=== PATIENT | female | born 1960 | race Caucasian/White ===

== ENCOUNTER 2019-05-12 16:22 | Emergency (ER) | payer OTHER, SELFPAY ==
--- NOTE | ~2019-05-12 | XR_ITS ---
EXAMINATION: XR ribs LT 2V w CXR 2V DATE: 05/12/2019 17:20 INDICATION: Left chest pain. Fall. TECHNIQUE: Frontal and lateral views of the chest and 3 views of the left ribs were obtained. COMPARISON: Chest 2 views 05/26/2017 FINDINGS: CHEST TWO VIEWS: The chest demonstrates clear lungs without pneumonia, pleural effusion, or pneumotho rax. The heart size is normal. Surgical clips in the right upper quadrant are likely from cholecystec epi. LEFT RIBS: There is no rib fracture. IMPRESSION: 1. No rib fracture. Reviewed, dictated and finalized at location A. SPHERIC PHYSICIST IMPRESSION: 1. No rib fracture.
--- NOTE | ~2019-05-12 | XR_ITS ---
EXAMINATION: XR elbow LT min 3V DATE: 05/12/2019 17:20 INDICATION: Left elbow pain. Fall. TECHNIQUE: 4 views of left elbow were obtained. COMPARISON: Left elbow radiographs 06/06/2014 FINDINGS: Bone alignment is normal. No fracture. There is mild elbow joint osteoarthritis. There is n o elbow joint effusion. IMPRESSION: 1. Mild elbow joint osteoarthritis. Reviewed, dictated and finalized at location A. FINISHER
--- NOTE | ~2019-05-12 | XR_ITS ---
XR ankle LT min 3V 05/12/2019 17:19 INDICATION: Left ankle pain PROCEDURE: 4 views left ankle COMPARISON: No prior studies for comparison. FINDINGS: Fracture, dislocation or subluxation is not identified. The soft tissues appear within norm al limits. No foreign bodies are identified. There are degenerative calcaneal enthesophytes. IMPRESSION: 1: NO ACUTE BONE OR JOINT ABNORMALITY IDENTIFIED. Reviewed, dictated and finalized at location A. ITAL HOUSEKEEPER
--- NOTE | ~2019-05-12 | XR_ITS ---
XR knee LT 3V 05/12/2019 17:20 Indication: Left knee pain after fall Procedure: 3 views left knee Comparison: No prior studies for comparison. Findings: There is mild-moderate osteoarthritis of the left knee most advanced in the patellofemoral compartment. There are patellar spurs. No significant joint effusion. No fracture or traumatic malali gnment. Impression: 1: No acute bone or joint abnormality. Reviewed, dictated and finalized at location A. UCTION ASSEMBLER Impression: 1: No acute bone or joint abnormality.
[2019-05-12 16:33] VITALS: BP 151/80; PULSE 65; RESP 18; TEMP 37.2; O2SAT 100
--- NOTE | 2019-05-12 17:44 | ED.FALL ---
HPI - Fall General Chief Complaint: Fall Stated Complaint: FALL Time Seen by Provider: 05/12/19 17:00 Source: patient Mode of arrival: wheelchair Limitations: no limitations History of Present Illness HPI Narrative: This is a 58 year old female that presents to the ER for a fall today. Reports she was walking into the doctor office and tripped stepping up onto the sidewalk. Reports falling onto her left side. Reports since she has had pain in her left elbow, left knee, left ankle and left lateral ribs. Reports she was able to walk after the fall. Denies hitting her head, loss of consciousness, prodromal symptoms, shortness of breath, weakness or numbness. Related Data Allergies Allergy/AdvReac Type Severity Reaction Status Date / Time iodine Allergy Intermediate HIVES Verified 05/12/19 16:47 codeine Allergy Unknown Unknown Verified 05/12/19 16:47 furosemide Allergy Unknown Unknown Verified 05/12/19 16:47 hydrochlorothiazide Allergy Unknown Unknown Verified 05/12/19 16:47 Iodinated Contrast Media Allergy Unknown Unknown Verified 05/12/19 16:47 WATER PILL Allergy Severe COULD NOT Uncoded 02/16/18 14:54 MOVE OR WALK Contrast Media Allergy Unknown HIVES FROM Uncoded 02/16/18 14:45 CT DYE Review of Systems Review of Systems: Narrative: CONSTITUTIONAL: Denies fever, chills EYES: Denies visual changes CARDIOVASCULAR: Reports chest pain RESPIRATORY: Denies dyspnea. GASTROINTESTINAL: Denies vomiting MUSCULOSKELETAL: Reports back pain, joint pain, and myalgia. NEUROLOGIC: Denies headache, numbness, or weakness. All systems reviewed & are unremarkable except as noted in HPI and below PMFSH Past Medical History Medical History (Updated 05/12/19 @ 18:06 by Alejandra Payan PA-C) History of anxiety History of depression Family History Family History (Updated 07/18/16 @ 23:56 by DOCTOR UNKNOWN) Sibling Family history of gastrointestinal disorder Mother Family history of chronic obstructive pulmonary disease Family history of malignant neoplasm of breast in first degree relative, Onset Age: 61 Patient's mother is Father Patient's father is Other Family history of malignant neoplasm of esophagus Social History Social History Smoking status: Never smoker Second hand tobacco smoke exposure: No Alcohol intake: never Gender identity (if verbalized by the patient): Female Exam Narrative: Exam Narrative: GENERAL: Well-appearing, well-nourished, and in no acute distress. HEAD: Normocephalic, atraumatic. EYES: PERRLA and EOMI. ENT: Nares clear, no rhinorrhea or epistaxis. Mucous membranes moist. Oropharynx without tonsillar hypertrophy exudate or other lesions. Bilateral TMs pearly verdin non-bulging NECK: Supple. No adenopathy or masses. No midline spinal tenderness CHEST: Clear to auscultation. No respiratory distress. No wheezes rales or rhonchi. Tender to palpation of left lateral lower ribs HEART: Regular rate and rhythm. No murmur heard. Normal peripheral pulses. EXTREMITIES: Normal range of motion. No edema or obvious deformity. Strength equal in bilateral upper and lower extremities (5/5) SKIN: Warm, dry, no rash. NEURO: No focal deficits. Alert and oriented x3. Cranial nerves II through XII grossly intact PSYCH: Normal mood and affect Course Vital Signs Vital signs: Vital Signs Temperature 98.9 F 05/12/19 16:33 Pulse Rate 65 05/12/19 16:33 Respiratory Rate 18 05/12/19 16:33 Blood Pressure 151/80 H 05/12/19 16:33 Pulse Oximetry 100 05/12/19 16:33 Temperature 98.9 F 05/12/19 16:33 Pulse Rate 65 05/12/19 16:33 Respiratory Rate 18 05/12/19 16:33 Blood Pressure 151/80 H 05/12/19 16:33 Pulse Oximetry 100 05/12/19 16:33 MDM - Fall MDM Narrative Medical decision making narrative: Patient presents the emergency department after a ground-level fall today with left elbow, knee, ankle and left sided rib pain. Den
[2019-05-12] MEDS: KETOROLAC (*BKC) 60 MG/2 ML VIAL IM (17:54)
== END 2019-05-12 18:44 | disposition home or self-care (01) ==
PROVIDERS: Emergency Provider Emergency Medicine; PCP Internal Medicine
DX: M25.522 Pain in left elbow (principal); R07.81 Pleurodynia; M25.562 Pain in left knee; M25.572 Pain in left ankle and joints of left foot; M19.072 Primary osteoarthritis, left ankle and foot; W01.0XXA Fall on same level from slipping, tripping and stumbling without subsequent striking against object, initial encounter
CPT/HCPCS: 71045; 71101; 73080; 73562; 73610; 96372; 99284; J1885

== ENCOUNTER 2019-06-16 11:40 | Outpatient (CLI) | payer OTHER, SELFPAY ==
--- NOTE | ~2019-06-16 | MM_ITS ---
EXAMINATION: MM screening [facility] BI w sanchez HISTORY: Screening mammogram TECHNIQUE: Craniocaudal and mediolateral oblique 3-D tomosynthesis images were obtained and synthetic 2-D images were generated. CAD analysis was submitted and interpreted. COMPARISON: Comparison to multiple prior studies sequentially, with oldest reviewed study dated 11/05. BREAST PARENCHYMAL COMPOSITION: There are scattered areas of fibroglandular density. FINDINGS: There is no evidence of suspicious mass, calcification, or architectural distortion to sugg est malignancy in either breast. There has been no suspicious interval change. IMPRESSION: 1. No mammographic evidence of malignancy. 2. Recommend routine screening mammography in one year. BI-RADS Category 1: Negative Reviewed, dictated and finalized at location A. TLE FINAL INSPECTOR
[2019-06-16 12:10] LABS: Hematocrit 40.6 % (37.0-47.0); Hemoglobin 12.9 g/dL (12.0-15.0); Mean Corpuscular HGB Conc 31.8 g/dl (32-36); Mean Corpuscular Hemoglobin 28.2 pg (26-34); Mean Corpuscular Volume 88.6 fl (80-100); Mean Platelet Volume 11.8 fl (7.4-10.4); Platelet Count Result 142 k/mm3 (150-375); Red Blood Count 4.58 M/mm3 (4.2-5.4); Red Cell Distribution Width 13.3 % (11.5-14.5); White Blood Count 3.7 K/mm3 (4.5-10.0)
[2019-06-16 12:42] LABS: Add Urine Microscopic? YES; Appearance Urine Clear (Clear); Bilirubin Urine Negative (Negative); Blood Urine 1+ (Negative); Color Urine Yellow (Yellow); Glucose Urine UA Negative (Negative); Ketones Urine Negative (Negative); Leukocyte Esterase Ur Negative LEU/UL (NEGATIVE); Mucus Urine Rare /lpf; Nitrate Urine Negative (Negative); Protein Urine Negative (Negative); RBC Urine 0-2 /hpf (0-2); Specific Grav Ur 1.018 (1.001-1.035); Squamous Epithelial Cell Urine Few /hpf (Few); Urobilinogen Urine Negative mg/dL (<2.0); WBC Urine 0-3 /hpf (0-3)
[2019-06-16 13:36] LABS: Alanine Aminotransferase 25 U/L (4-35); Alkaline Phosphatase 44 U/L (38-126); Aspartate Amino Transferase 23 U/L (14-36); Bilirubin,Total 0.6 mg/dL (0.2-1.3); Blood Urea Nitrogen 15 mg/dL (7-17); Carbon Dioxide 28 mmol/L (22-30); Chloride 105 mmol/L (98-107); Cholesterol 194 mg/dL (0-200); Estimated Glomerular Filt Rate > 60; Glucose 87 mg/dL (65-105); HDL Direct 49 mg/dL; Potassium 4.2 mmol/L (3.4-5.0); Sodium 142 mmol/L (137-145); Triglycerides 158 mg/dL (<150)
[2019-06-16 13:47] LABS: LDL Cholesterol Direct 116 mg/dL
[2019-06-16 14:42] LABS: Folic Acid 15.3 ng/mL (2.76->20)
== END 2019-06-16 11:41 | disposition home or self-care (01) ==
PROVIDERS: Physician Assistant; PCP Internal Medicine; Visit Provider Internal Medicine
DX: Z12.31 Encounter for screening mammogram for malignant neoplasm of breast (principal); R53.83 Other fatigue; E78.00 Pure hypercholesterolemia, unspecified; I10 Essential (primary) hypertension
CPT/HCPCS: 36415; 77063; 77067; 80053; 80061; 81001; 82607; 82746; 83735; 84443; 85027; 87086; 87088

== ENCOUNTER 2019-09-06 16:43 | Outpatient (CLI) | payer OTHER, SELFPAY ==
--- NOTE | ~2019-09-06 | XR_ITS ---
EXAMINATION: XR chest 2V EXAM DATE: 09/06/2019 17:41 INDICATION: Cough. Hypertension. TECHNIQUE: Frontal and lateral projections of the chest obtained and reviewed. Comparison is made to prior examination from 05/12/2019. FINDINGS: The lungs are clear. There are no pleural effusions. The cardiomediastinal silhouette is within normal limits. There is no pneumothorax suspected. Midthoracic bridging endplate osteophytes . There are cholecystectomy clips. IMPRESSION: No acute cardiopulmonary findings. Reviewed, dictated and finalized at location G.
== END 2019-09-06 16:44 | disposition home or self-care (01) ==
LOC: ANHIMG 16:46
PROVIDERS: PCP Internal Medicine; Visit Provider Internal Medicine
DX: R05 Cough (principal); I10 Essential (primary) hypertension
CPT/HCPCS: 71046

== ENCOUNTER 2020-02-10 09:17 | Outpatient (CLI) | payer OTHER, SELFPAY ==
[2020-02-10 09:35] LABS: Basophils Percent Auto 0.9 % (0.2-1.2); Eosinophils Absolute Auto 0.1 K/mm3 (0-0.3); Eosinophils Percent Auto 3.2 % (0-4.4); Hematocrit 44.2 % (37.0-47.0); Hemoglobin 14.3 g/dL (12.0-15.0); Immature Granulocyte Absolute 0.01 K/mm3 (0.00-0.031); Immature Granulocyte Percent A 0.3 % (0-0.5); Lymphocytes Absolute Auto 1.07 K/mm3 (0.9-3.2); Lymphocytes Percent Auto 31.6 % (18.3-44.2); Mean Corpuscular HGB Conc 32.4 g/dl (32-36); Mean Corpuscular Hemoglobin 28.9 pg (26-34); Mean Corpuscular Volume 89.5 fl (80-100); Mean Platelet Volume 11.5 fl (7.4-10.4); Monocytes Absolute Auto 0.4 K/mm3 (0.1-0.6); Monocytes Percent Auto 12.1 % (2.6-8.5); Neutrophils Absolute Auto 1.8 K/mm3 (1.3-6.7); Neutrophils Percent Auto 51.9 % (45.5-73.1); Platelet Count Result 155 k/mm3 (150-375); Red Blood Count 4.94 M/mm3 (4.2-5.4); White Blood Count 3.4 K/mm3 (4.5-10.0)
[2020-02-10 09:45] LABS: Alanine Aminotransferase 33 U/L (4-35); Albumin Level 4.4 g/dL (3.5-5.1); Alkaline Phosphatase 48 U/L (38-126); Anion Gap 5 mmol/L (8-16); Aspartate Amino Transferase 29 U/L (14-36); Bilirubin,Total 0.6 mg/dL (0.2-1.3); Blood Urea Nitrogen 18 mg/dL (7-17); Calcium 9.6 mg/dL (8.4-10.2); Carbon Dioxide 32 mmol/L (22-30); Chloride 105 mmol/L (98-107); Cholesterol 199 mg/dL (0-200); Estimated Glomerular Filt Rate > 60; Glucose 94 mg/dL (65-105); HDL Direct 52 mg/dL; Magnesium 2.2 mg/dL (1.6-2.3); Potassium 4.3 mmol/L (3.4-5.0); Sodium 142 mmol/L (137-145); Triglycerides 123 mg/dL (<150)
[2020-02-10 09:56] LABS: LDL Cholesterol Direct 123 mg/dL
[2020-02-10 10:51] LABS: Folic Acid 17.7 ng/mL (2.76->20)
== END 2020-02-10 09:18 | disposition home or self-care (01) ==
PROVIDERS: PCP Internal Medicine; Visit Provider Internal Medicine
DX: D72.819 Decreased white blood cell count, unspecified (principal); E78.5 Hyperlipidemia, unspecified; I10 Essential (primary) hypertension; R53.83 Other fatigue
CPT/HCPCS: 36415; 80053; 80061; 82607; 82746; 83735; 84443; 85025

== ENCOUNTER 2020-08-28 08:36 | Outpatient (CLI) | payer OTHER, SELFPAY ==
[2020-08-28 09:22] LABS: Basophils Absolute Auto 0.1 K/mm3 (0.0-0.1); Basophils Percent Auto 1.8 % (0.2-1.2); Eosinophils Absolute Auto 0.1 K/mm3 (0-0.3); Eosinophils Percent Auto 4.3 % (0-4.4); Hematocrit 43.5 % (37.0-47.0); Hemoglobin 13.8 g/dL (12.0-15.0); Lymphocytes Absolute Auto 1.33 K/mm3 (0.9-3.2); Lymphocytes Percent Auto 40.7 % (18.3-44.2); Mean Corpuscular HGB Conc 31.7 g/dl (32-36); Mean Corpuscular Hemoglobin 27.7 pg (26-34); Mean Corpuscular Volume 87.3 fl (80-100); Mean Platelet Volume 11.8 fl (7.4-10.4); Monocytes Absolute Auto 0.3 K/mm3 (0.1-0.6); Monocytes Percent Auto 10.1 % (2.6-8.5); Neutrophils Absolute Auto 1.4 K/mm3 (1.3-6.7); Neutrophils Percent Auto 43.1 % (45.5-73.1); Platelet Count Result 156 k/mm3 (150-375); Red Blood Count 4.98 M/mm3 (4.2-5.4); White Blood Count 3.3 K/mm3 (4.5-10.0)
[2020-08-28 09:32] LABS: Alanine Aminotransferase 24 U/L (4-35); Albumin Level 4.4 g/dL (3.5-5.1); Alkaline Phosphatase 46 U/L (38-126); Anion Gap 4 mmol/L (8-16); Aspartate Amino Transferase 22 U/L (14-36); Bilirubin,Total 0.6 mg/dL (0.2-1.3); Blood Urea Nitrogen 16 mg/dL (7-17); Calcium 9.8 mg/dL (8.4-10.2); Carbon Dioxide 32 mmol/L (22-30); Chloride 107 mmol/L (98-107); Cholesterol 193 mg/dL (0-200); Estimated Glomerular Filt Rate 56; Glucose 90 mg/dL (65-105); HDL Direct 57 mg/dL; Potassium 4.5 mmol/L (3.4-5.0); Sodium 143 mmol/L (137-145); Triglycerides 124 mg/dL (<150)
[2020-08-28 09:44] LABS: LDL Cholesterol Direct 113 mg/dL
[2020-08-28 10:27] LABS: Vitamin D 25 Hydroxy 33.6 ng/mL
[2020-08-28 10:41] LABS: Folic Acid > 20.0 ng/mL (2.76->20)
== END 2020-08-28 08:37 | disposition home or self-care (01) ==
PROVIDERS: PCP Internal Medicine; Visit Provider Internal Medicine
DX: R53.83 Other fatigue (principal); E78.5 Hyperlipidemia, unspecified; E55.9 Vitamin D deficiency, unspecified
CPT/HCPCS: 36415; 80053; 80061; 82306; 82607; 82746; 84443; 85025

== ENCOUNTER 2020-08-29 13:52 | Outpatient (CLI) | payer OTHER, SELFPAY ==
--- NOTE | ~2020-08-29 | MM_ITS ---
EXAMINATION: MM screening [facility] w sanchez HISTORY: Screening TECHNIQUE: Craniocaudal and mediolateral oblique 3-D tomosynthesis images were obtained and synthetic 2-D images were generated. CAD analysis was submitted and interpreted. COMPARISON: Comparison to multiple prior studies sequentially, with oldest reviewed study dated 05/12. BREAST PARENCHYMAL COMPOSITION: There are scattered areas of fibroglandular density. FINDINGS: The right breast is stable without evidence for malignancy. There is a developing mass in t he subareolar location of the left breast. IMPRESSION: 1. Developing subareolar left breast mass. 2. Additional mammographic views and possible breast ultrasound are recommended. BI-RADS Category 0: Incomplete: Needs additional imaging evaluation. Reviewed, dictated and finalized at location A. IMPRESSION: 1. Developing subareolar left breast mass. 2. Additional mammographic views and possible breast ultrasound are recommended . BI-RADS Category 0: Incomplete: Needs additional imaging evaluation.
== END 2020-08-29 13:53 | disposition home or self-care (01) ==
PROVIDERS: PCP Internal Medicine; Visit Provider Obstetrics & Gynecology
DX: Z12.31 Encounter for screening mammogram for malignant neoplasm of breast (principal); R92.8 Other abnormal and inconclusive findings on diagnostic imaging of breast
CPT/HCPCS: 77063; 77067

== ENCOUNTER 2020-10-01 12:17 | Outpatient (CLI) | payer OTHER, SELFPAY ==
--- NOTE | ~2020-10-01 | US_ITS ---
US breast LT limited DATE: 10/01/2020 13:27 Please refer to the 10/01/2020 combined left diagnostic and limited left breast ultrasound report. IMPRESSION: BI-RADS Category 4: Suspicious abnormality; biopsy should be considered Recommendation: Ultrasound-guided biopsy of left breast 6:00 lesion Reviewed, dictated and finalized at Location A. Reviewed, dictated and finalized at location A. IMPRESSION: BI-RADS Category 4: Suspicious abnormality; biopsy should be consid ered Recommendation: Ultrasound-guided biopsy of left breast 6:00 lesion
--- NOTE | ~2020-10-01 | MM_ITS ---
EXAMINATION: MM diagnostic mammo unilat LT HISTORY: Developing subareolar left breast mass reported on 08/29/2020 screening mammogram TECHNIQUE: Additional 3-D tomosynthesis images of the left breast were performed and synthetic 2-D im ages were generated. CAD analysis was submitted and interpreted. High resolution targeted left breast ultrasound was performed. COMPARISON: 08/29/2020, 06/16/2019, 07/21/2017 bilateral digital screening mammogram examinations FINDINGS: MAMMOGRAPHIC FINDINGS: There is a circumscribed 5 x 7 mm opacity in the central lower anterior left breast. There are some benign calcified microhematomas. ULTRASOUND: At 6:00 subareolar area there is an irregular hypoechoic area measuring up to 5 x 7 mm, with some pos terior shadowing. No internal vascularity is noted. IMPRESSION: 1. Suspicious approximately 7 mm solid mass at 6:00 subareolar area 2. Ultrasound-guided biopsy is recommended BI-RADS category 4, suspicious findings. Dr. Alfonso telephoned the report and ultrasound-guided biopsy recommendation on 10/01/[address] Moreno. Reviewed, dictated and finalized at location A. IMPRESSION: 1. Suspicious approximately 7 mm solid mass at 6:00 subareolar area 2. Ultrasound-guided biopsy is recommended BI-RADS category 4, suspicious findings. Dr. Alfonso telephoned the report and ultrasound-guided biopsy recommendation on at [address] Moreno.
== END 2020-10-01 12:18 | disposition home or self-care (01) ==
PROVIDERS: PCP Internal Medicine; Visit Provider Obstetrics & Gynecology
DX: R92.8 Other abnormal and inconclusive findings on diagnostic imaging of breast (principal)
CPT/HCPCS: 76642; 77065

== ENCOUNTER 2020-10-18 10:01 | Outpatient (CLI) | payer OTHER, SELFPAY ==
--- NOTE | ~2020-10-18 | US_ITS ---
Corrected Report Order # Associated See Bolded Text 10/19/2020 [facility] EXAMINATION: US breast biopsy LT w image; MM post biopsy invasive LT DATE: 10/18/2020 11:20 INDICATION: Indeterminate subareolar left breast mass. Ultrasound-guided core biopsy is requested to evaluate for malignancy. TECHNIQUE AND FINDINGS: The risks and potential benefits of the procedure were discussed with the patient including bleeding, infection, and nondiagnostic specimen. A time out was performed. The skin of the left breast was prepared and draped in usual sterile fashion. 1% lidocaine was used for superficial anesthesia. 1% lidocaine with epinephrine was used for deep anesthesia. A vacuum-assisted biopsy gun needle was advanced through to the outer edge of the region of interest from a lateral approach utilizing sonographic guidance. A total of three tissue core samples were obtained through the lesion. A tissue marker clip was then placed at the biopsy site. Hemostasis was achieved. A sterile bandage was applied. The patient tolerated procedure well and there was no evidence of immediate complication. The patient was given verbal instructions to return to the Emergency Department in the event of severe breast pain or rapid breast enlargement. A two view left breast mammogram was obtained to document tissue marker clip placement. IMPRESSION: 1. Successful ultrasound-guided vacuum-assisted biopsy of left breast mass with tissue marker placement. Reviewed, dictated and finalized at location A. MTDD
== END 2020-10-18 10:02 | disposition home or self-care (01) ==
PROVIDERS: PCP Internal Medicine; Visit Provider Obstetrics & Gynecology
DX: R92.2 Inconclusive mammogram (principal); R92.8 Other abnormal and inconclusive findings on diagnostic imaging of breast
CPT/HCPCS: 19083; 88305; 88342; A4648

== ENCOUNTER 2020-11-01 11:38 | Outpatient (CLI) | payer OTHER, SELFPAY ==
--- NOTE | ~2020-11-01 | XR_ITS ---
EXAMINATION: XR chest 2V DATE: 11/01/2020 12:09 INDICATION: Cough and congestion TECHNIQUE: PA and lateral views of the chest are obtained. COMPARISON: 08/17/2019 FINDINGS: The lungs are free of acute opacities. There is no pleural effusion or pneumothorax. The ca rdiomediastinal silhouette is normal. There are bridging osteophytes at multiple levels in the spine, consistent with diffuse idiopathic skeletal hyperostosis (DISH). Surgical clips in the right upper q uadrant are likely from prior cholecystectomy. IMPRESSION: 1. No acute cardiopulmonary abnormality. Reviewed, dictated and finalized at location B.
== END 2020-11-01 11:39 | disposition home or self-care (01) ==
LOC: CHSIMG 11:41
PROVIDERS: PCP Internal Medicine; Visit Provider Physician Assistant
DX: R05 Cough (principal)
CPT/HCPCS: 71046

== ENCOUNTER 2020-12-13 02:26 | Day surgery (SDC) | payer OTHER, SELFPAY ==
--- NOTE | 2020-12-11 12:38 | PM.SD2 ---
Same Day Admit/Disch: HPI History of Present Illness Chief complaint: Atypical intraductal hyperplasia left breast Narrative: Pollo Marin is a 59 year old female who on screening mammogram last August showed a developing subareolar left breast mass. Additional imaging was recommended. The right breast was negative. Left breast diagnostic mammogram and ultrasound was done back in September. This showed a 5 x 7 mm opacity in the central lower but anterior left breast. Ultrasound showed a suspicious solid mass at approximately 6:00 a.m. in the subareolar area. The patient had a follow-up ultrasound guided core biopsy on October 18, 2020 which showed atypical intraductal papillary proliferation. Patient has a strong family history of cancer and her mother had breast cancer at an early age. Her mother also of breast cancer. Patient has a significant previous history also of a bilateral breast reduction about 15 years ago. She has not had an abnormal mammogram in the past. She is taken to surgery now for wire localization left breast excisional biopsy of the atypical intraductal proliferation. [facility] Past Medical History Medical History (Updated 12/13/20 @ 11:50 by Zan Ann MD) History of anxiety History of depression Hyperlipidemia Hypertension PONV (postoperative nausea and vomiting) Surgical History Surgical History (Updated 12/12/20 @ 12:34 by Levar Longoria DO) History of bilateral breast reduction surgery History of cardiac cath History of hysterectomy History of tubal ligation Hx of carpal tunnel repair S/P cholecystectomy Family History Family History Sibling Family history of gastrointestinal disorder Lung cancer Mother , age 61 Family history of chronic obstructive pulmonary disease Family history of malignant neoplasm of breast in first degree relative, Onset Age: 61 Father , age 57 Lymphoma Son , age 30 Esophageal cancer Other Family history of malignant neoplasm of esophagus Social History Social History Smoking status: Never smoker Second hand tobacco smoke exposure: Yes Alcohol intake: never Substance use: never Living arrangements: with family 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 Gender identity (if verbalized by the patient): Female Spiritual care concerns: No Same Day Admit/Disch: Med Pre-admit Medications Home Medications Medication Instructions Recorded Confirmed Type acetaminophen 500 mg tablet 500 mg PO Q6H PRN 06/15/19 12/13/20 History aspirin 81 mg tablet,delayed 81 mg PO DAILY 06/15/19 12/13/20 History release cholecalciferol (vitamin D3) 50 2,000 unit PO DAILY 06/15/19 12/13/20 History mcg (2,000 unit) capsule lisinopril 20 mg tablet 20 mg PO DAILY #90 tablet 07/27/20 12/13/20 Rx alprazolam 1 mg PO HS 12/11/20 12/13/20 History simvastatin 40 mg PO HS 12/11/20 12/13/20 History ibuprofen 600 mg PO Q6H PRN #14 tablet 12/13/20 Rx oxycodone-acetaminophen 0.5 - 1 tablet PO Q6H PRN #7 tablet 12/13/20 Rx Exam Const: General: comfortable, no acute distress, alert and awake HENMT: Head: normocephalic and atraumatic Mouth: Yes Normal oral and palatal mucosa present Eyes: Conjunctivae: conjunctivae normal Pupils: Equal, round and reactive pupils present EOM: EOMs intact bilaterally Neck: Neck: normal visual inspection, no lymphadenopathy and nontender Chest: Breast/axilla inspection: normal inspection of the axillae and abnormal inspection of the breast ( Typical keyhole scars from bilateral reduction mammoplasty) Breast/axilla palpation: normal palpation of the breasts and normal palpation of the axillae Resp: Effort & Inspection: normal respiratory effort Auscultation: clear to auscultation bilaterally Cardio: Rate: regular rate Rhythm: regular rhythm Heart sounds: no gal
[2020-12-11 14:09] VITALS: BMI 36.8
--- NOTE | 2020-12-12 12:34 | WPDANESEPPF ---
Anes - Initial Pre Proc Eval Procedure: Operation Date: 12/13/20 10:30 Proposed Procedures p Left Breast Biopsy With Ultrasound and/or Mammogram Guided Needle Localization - Zan Ann MD Date/Time: 12/12/20 12:34 Surgeon: Zan Ann MD Pre Op Diagnosis: Atypical intraductal hyperplasia left breast Patient Data Age: 59 Gender: F Height: 1.6 m Weight: 94.5 kg Allergies Allergy/AdvReac Type Severity Reaction Status Date / Time furosemide Allergy Severe couldnt Verified 12/13/20 08:51 move or walk hydrochlorothiazide Allergy Severe couldnt Verified 12/13/20 08:51 move or walk Iodinated Contrast Media Allergy Severe Hives Verified 12/13/20 08:51 iodine Allergy Intermediate HIVES Verified 12/13/20 08:51 procaine [From Novocain] Allergy Intermediate Vomiting, Verified 12/13/20 08:51 dizziness codeine Allergy Mild upset Verified 12/13/20 08:51 stomach Home Medications Medication Instructions Recorded Confirmed Type acetaminophen 500 mg tablet 500 mg PO Q6H PRN 06/15/19 12/13/20 History aspirin 81 mg tablet,delayed 81 mg PO DAILY 06/15/19 12/13/20 History release cholecalciferol (vitamin D3) 50 2,000 unit PO DAILY 06/15/19 12/13/20 History mcg (2,000 unit) capsule lisinopril 20 mg tablet 20 mg PO DAILY #90 tablet 07/27/20 12/13/20 Rx alprazolam 1 mg PO HS 12/11/20 12/13/20 History simvastatin 40 mg PO HS 12/11/20 12/13/20 History Patient hx anesthesia problems: none Family hx anesthesia problems: none PMFSH Past Medical History Medical History (Updated 12/12/20 @ 12:34 by Levar Longoria DO) History of anxiety History of depression Hyperlipidemia Hypertension PONV (postoperative nausea and vomiting) Surgical History Surgical History (Updated 12/12/20 @ 12:34 by Levar Longoria DO) History of bilateral breast reduction surgery History of cardiac cath History of hysterectomy History of tubal ligation Hx of carpal tunnel repair S/P cholecystectomy Family History Family History Sibling Family history of gastrointestinal disorder Lung cancer Mother , age 61 Family history of chronic obstructive pulmonary disease Family history of malignant neoplasm of breast in first degree relative, Onset Age: 61 Father , age 57 Lymphoma Son , age 30 Esophageal cancer Other Family history of malignant neoplasm of esophagus Social History Social History Smoking status: Never smoker Second hand tobacco smoke exposure: Yes Alcohol intake: never Substance use: never Living arrangements: with family 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 Gender identity (if verbalized by the patient): Female Spiritual care concerns: No Anes - Eval Final PreProcedure Day of Procedure 12/12/20 12:34 Patient weight: obese Heart: regular rate and rhythm Lungs: clear to auscultation and normal air movement Airway: Mallampati scale class II Neurological: alert and oriented Last oral intake: >/= 8 hours ASA classification: III Emergent: no Anesthetic plan: proceed Anesthesia type and monitoring: general GIVS and standard monitoring Informed Consent: The patient's anesthetic plan and its attendant risks and benefits were discussed with the patient/family/POA. Questions were solicited and answers provided to the satisfaction of the patient/family/POA.
--- NOTE | ~2020-12-13 | MM_ITS ---
EXAMINATION: MM needle loc LT, MM surgical specimen LT MAMMOGRAPHY SPECIMEN DATE: 12/13/2020 11:21 CDT INDICATION: Atypical intraductal papillary proliferation seen on prior biopsy.. TECHNIQUE: The procedure for a mammography-guided needle localization was discussed with the patient' s. Risks and benefits were detailed, including risks of bleeding, infection, pain, and nondiagnostic specimen. The patient verbalized understanding and agreed to proceed. The time out was performed to verify the patient's name, date of , and site of procedure. The p atient was placed in the left breast compression, and the skin overlying the left breast was prepped in usual fashion. Utilizing mammography guidance, a needle was advanced into the left breast. Two c onfirmatory films were obtained. The patient tolerated procedure without immediate complication. A specimen radiograph was performed. FINDINGS: Two view confirmatory films of the left breast demonstrate a the wire adjacent to the lesio n of interest containing tissue marker. The mass and tissue marker are contained within the surgical specimen.] IMPRESSION: 1. Successful mammography-guided left breast needle localization. Reviewed, dictated and finalized at location [facility]. IMPRESSION: 1. Successful mammography-guided left breast needle localization.
[2020-12-13] MEDS: LACTATED RINGERS 1,000 ML 30 ML IV CONT ×2 (08:55→11:33)
[2020-12-13 09:21] VITALS: BP 144/86; PULSE 68; RESP 16; TEMP 36.9; O2SAT 100
--- NOTE | 2020-12-13 10:16 | WPDHPUPDATE1 ---
History and Physical Update Update Date/Time: 12/13/20 10:16 History and Physical has been reviewed, including an updated exam of the patient. There are NO changes in the patient's condition. Risks, benefits, and alternatives have been discussed and questions answered. Patient agrees to proceed with procedure.
[2020-12-13] MEDS: ceFAZolin 2 GM/D5W 50 ML 2 GM/50 ML BAG IVPB (10:35)
--- NOTE | 2020-12-13 11:17 | SUR.OPER ---
LEFT EXCISIONAL BREAST BIOPSY COLLECTED AT 1108. SENT TO MAMMS PER YRIS PCT AT 1110. MAMMS RECEIVED SPECIMEN AT 1115 AND STATED MARKER WAS IN THE SPECIMEN. DR. BENITEZ NOTIFIED.
[2020-12-13 11:33] VITALS: BP 121/68; PULSE 69; RESP 16; O2SAT 95
[2020-12-13 11:45] VITALS: BP 121/68; PULSE 63; RESP 16; O2SAT 96
--- NOTE | 2020-12-13 11:52 | W.PM.PROC2 ---
Procedure Note - Detailed Date of Procedure 12/13/20 Pre-op Diagnosis Atypical intraductal hyperplasia left breast Post-op Diagnosis same Procedure Performed Needle localization left breast excisional biopsy Surgeon Zan Ann MD Geophysical E Logger Victor Hugo ANNE, Maggy ANNE Anesthesia MAC and local Indications Patient an abnormality of the left breast by imaging. Ultrasound-guided needle biopsy showed atypical intraductal hyperplasia. She is taken to surgery now for wire localization excisional biopsy to rule out associated breast neoplasm. Findings Specimen mammogram did confirm the presence of the lesion Description of Procedure Patient was checked in the preoperative holding area. She had already had the wire localization procedure. I reviewed her imaging. She was taken to surgery and IV sedation was administered. The left breast was prepped and draped taking care not to disturb the localizing wire. The proposed incision was at the circumareolar border where she had had previous incision from her reduction mammoplasty. Local was infiltrated in this area. Incision was then made. Cautery was used for hemostasis. Dissection was carried down staying away from the area of the lesion until I encountered the localizing wire. I then carefully pulled the wire through the skin and out the wound. From here I was then able to dissect under the nipple-areolar complex around the wire. I stayed just superficial to the wire advancing farther along the wire towards the more medial aspect of the breast. As I came to the into the wire, I then dissected around it and posterior. I took more breast tissue posteriorly as this was the area of the lesion and the localizing clip. I excised the breast tissue with a generous excision. Cautery was used for hemostasis. The wire was left in the specimen. The specimen and wire was sent to mammography where specimen mammogram was performed. The lesion was in the specimen. We then made the wound hemostatic with the cautery. It was closed in layers using 3-0 Monocryl interrupted suture. Subcuticular interrupted 3-0 Monocryl skin stitches were placed followed by a running 4-0 Monocryl skin suture. The wound was dressed with Exofin surgical adhesive. The patient was awakened and taken to outpatient surgery in good condition. Sponge and needle counts were correct x2. Estimated Blood Loss -10.0 Drains No Packing No Pathology yes (Left breast tissue) Complications None Condition stable Disposition same day
[2020-12-13 12:00] VITALS: BP 136/67; PULSE 64; RESP 16; O2SAT 98
[2020-12-13 12:30] VITALS: BP 137/68; PULSE 68; RESP 16
== END 2020-12-13 12:50 | disposition home or self-care (01) ==
PROVIDERS: PCP Internal Medicine; Visit Provider Surgery
PROC: (CPT 19125; principal; 2020-12-13 10:30)
DX: N60.92 Unspecified benign mammary dysplasia of left breast (principal); N60.82 Other benign mammary dysplasias of left breast; I10 Essential (primary) hypertension; E78.5 Hyperlipidemia, unspecified; Z80.0 Family history of malignant neoplasm of digestive organs; Z79.82 Long term (current) use of aspirin
CPT/HCPCS: 19125; 19281; 76098; 88307; 88342; A9270; C1769; J0690; J1100; J1200; J2250; J2405; J2704; J3010; J7120

== ENCOUNTER 2021-05-14 01:02 | Day surgery (SDC) | payer OTHER, SELFPAY ==
[2021-05-06 11:40] VITALS: BMI 33.2
[2021-05-14 07:03] VITALS: BP 142/62; PULSE 68; RESP 18; TEMP 36.6; O2SAT 100
[2021-05-14] MEDS: LACTATED RINGERS 1,000 ML 150 ML IV CONT (07:17)
--- NOTE | 2021-05-14 07:27 | WPDANESEPPF ---
Anes - Initial Pre Proc Eval Procedure: Operation Date: 05/14/21 08:00 Proposed Procedures p Esophagogastroduodenoscopy - Dennis Phillips MD Date/Time: 05/14/21 07:27 Surgeon: Dennis Phillips MD Pre Op Diagnosis: chest pain, GERD, epigastric pain Patient Data Age: 60 Gender: F Height: 1.61 m Weight: 90.2 kg Last Vital Signs Temp 36.6 C 05/14/21 07:03 Pulse 68 05/14/21 07:03 Resp 18 05/14/21 07:03 BP 142/62 H 05/14/21 07:03 Pulse Ox 100 05/14/21 07:03 Allergies Allergy/AdvReac Type Severity Reaction Status Date / Time furosemide Allergy Severe couldnt Verified 05/14/21 07:01 move or walk hydrochlorothiazide Allergy Severe couldnt Verified 05/14/21 07:01 move or walk Iodinated Contrast Media Allergy Severe Hives Verified 05/14/21 07:01 iodine Allergy Intermediate HIVES Verified 05/14/21 07:01 codeine AdvReac Mild upset Verified 05/14/21 07:01 stomach Home Medications Medication Instructions Recorded Confirmed Type acetaminophen 500 mg tablet 500 mg PO Q6H PRN 06/15/19 05/06/21 History aspirin 81 mg tablet,delayed 81 mg PO DAILY 06/15/19 05/06/21 History release cholecalciferol (vitamin D3) 50 2,000 unit PO DAILY 06/15/19 05/06/21 History mcg (2,000 unit) capsule lisinopril 20 mg tablet 20 mg PO DAILY #90 tablet 04/02/21 05/06/21 Rx alprazolam 1 mg tablet 1 mg PO HS #30 tablet 05/02/21 05/06/21 Rx famotidine 20 mg PO DAILY 05/06/21 05/06/21 History simvastatin 40 mg PO HS 05/06/21 05/06/21 History Patient hx anesthesia problems: post op nausea/vomiting Family hx anesthesia problems: none Results Review: All pre-operative results and documents have been reviewed as part of the pre-operative evaluation. [facility] Past Medical History Medical History History of anxiety History of depression Hyperlipidemia Hypertension PONV (postoperative nausea and vomiting) Surgical History Surgical History History of bilateral breast reduction surgery History of cardiac cath History of hysterectomy History of tubal ligation Hx of carpal tunnel repair S/P cholecystectomy Family History Family History Sibling Family history of gastrointestinal disorder Lung cancer Mother , age 61 Family history of chronic obstructive pulmonary disease Family history of malignant neoplasm of breast in first degree relative, Onset Age: 61 Father , age 57 Lymphoma Son , age 30 Esophageal cancer Other Family history of malignant neoplasm of esophagus Social History Social History Smoking status: Never smoker Second hand tobacco smoke exposure: Yes Alcohol intake: never Substance use: never Substance use type: does not use Living arrangements: with family 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 Informed Consent: The patient's anesthetic plan and its attendant risks and benefits were discussed with the patient/family/POA. Questions were solicited and answers provided to the satisfaction of the patient/family/POA.
--- NOTE | 2021-05-14 07:55 | WPDGICN ---
Assessment and Plan Assessment and plan (1) Epigastric pain: Code(s): R10.13 - Epigastric pain Status: Acute Assessment and Plan: Patient complains of epigastric pain. Not completely resolve with Pepcid. Plan is for EGD to assess more thoroughly. Suspect this is consistent with dyspepsia. She is somewhat concerned because of family history of esophageal cancer in her son. Plan is for an EGD with further recommendations subsequently. GI Consult Note Consult date/time: 05/14/21 07:55 HPI: Shawnrigo Marin is a 60 year old female Complains of epigastric pain bloating pressure over the last 3 weeks. She was started on Pepcid with some modest improvement of symptoms. She has feels much improved now she is referred for an EGD because of her epigastric pain. Patient denies any dysphagia. She has had no bleeding or weight loss. Family history is significant that her son had esophageal cancer at age 36. Patient last had an EGD 10 years ago. Patient does report a colon polyp removed by Dr Silverman in 2019. Follow-up colonoscopy has been recommended at 5 year intervals. Review of Systems Review of Systems: All systems reviewed & are unremarkable except as noted in HPI and below PMFSH Past Medical History Medical History History of anxiety History of depression Hyperlipidemia Hypertension PONV (postoperative nausea and vomiting) Surgical History Surgical History History of bilateral breast reduction surgery History of cardiac cath History of hysterectomy History of tubal ligation Hx of carpal tunnel repair S/P cholecystectomy Family History Family History Sibling Family history of gastrointestinal disorder Lung cancer Mother , age 61 Family history of chronic obstructive pulmonary disease Family history of malignant neoplasm of breast in first degree relative, Onset Age: 61 Father , age 57 Lymphoma Son , age 30 Esophageal cancer Other Family history of malignant neoplasm of esophagus Social History Social History Smoking status: Never smoker Second hand tobacco smoke exposure: Yes Alcohol intake: never Substance use: never Substance use type: does not use Living arrangements: with family 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 Gender identity (if verbalized by the patient): Female Spiritual care concerns: No Meds Home Medications and Allergies Home Medications Medication Instructions Recorded Confirmed Type acetaminophen 500 mg tablet 500 mg PO Q6H PRN 06/15/19 05/06/21 History aspirin 81 mg tablet,delayed 81 mg PO DAILY 06/15/19 05/06/21 History release cholecalciferol (vitamin D3) 50 2,000 unit PO DAILY 06/15/19 05/06/21 History mcg (2,000 unit) capsule lisinopril 20 mg tablet 20 mg PO DAILY #90 tablet 04/02/21 05/06/21 Rx alprazolam 1 mg tablet 1 mg PO HS #30 tablet 05/02/21 05/06/21 Rx famotidine 20 mg PO DAILY 05/06/21 05/06/21 History simvastatin 40 mg PO HS 05/06/21 05/06/21 History Allergies Allergy/AdvReac Type Severity Reaction Status Date / Time furosemide Allergy Severe couldnt Verified 05/14/21 07:01 move or walk hydrochlorothiazide Allergy Severe couldnt Verified 05/14/21 07:01 move or walk Iodinated Contrast Media Allergy Severe Hives Verified 05/14/21 07:01 iodine Allergy Intermediate HIVES Verified 05/14/21 07:01 codeine AdvReac Mild upset Verified 05/14/21 07:01 stomach Vital Signs Vital Signs - 24 hr 05/14/21 07:03 Temperature 97.8 F Pulse Rate 68 Respiratory Rate 18 Blood Pressure 142/62 H Pulse Oximetry 100 Exam Narrative: Physical exam reveals patient be alert. Vital signs stable. HEENT exam is unr
[2021-05-14 08:10] VITALS: BP 107/49; PULSE 58; RESP 20; O2SAT 100
[2021-05-14 08:20] VITALS: BP 108/54; PULSE 61; RESP 15; O2SAT 100
[2021-05-14 08:30] VITALS: BP 121/60; PULSE 60; RESP 16; O2SAT 100
== END 2021-05-14 08:50 | disposition home or self-care (01) ==
PROVIDERS: PCP Internal Medicine; Visit Provider Internal Medicine Gastroenterology
PROC: 0DJ08ZZ Inspection of Upper Intestinal Tract, Via Natural or Artificial Opening Endoscopic (ICD-10-PCS; CPT 43235; principal; 2021-05-14 08:00)
DX: K21.9 Gastro-esophageal reflux disease without esophagitis (principal); I10 Essential (primary) hypertension; E78.5 Hyperlipidemia, unspecified; F41.8 Other specified anxiety disorders; Z79.82 Long term (current) use of aspirin; E66.9 Obesity, unspecified; Z68.34 Body mass index [BMI] 34.0-34.9, adult
CPT/HCPCS: 43239; 87081; J2704; J7120

== ENCOUNTER 2021-06-11 11:38 | Outpatient (CLI) | payer OTHER, SELFPAY ==
[2021-06-11 12:23] LABS: Add Urine Microscopic? YES; Appearance Urine Clear (Clear); Bilirubin Urine Negative (Negative); Blood Urine 1+ (Negative); Color Urine Yellow (Yellow); Glucose Urine UA Negative (Negative); Ketones Urine Negative (Negative); Leukocyte Esterase Ur Negative LEU/UL (Negative); Mucus Urine Rare /lpf; Nitrate Urine Negative (Negative); Protein Urine Negative (Negative); RBC Urine 0-2 /hpf (0-2); Specific Grav Ur 1.015 (1.001-1.035); Squamous Epithelial Cell Urine Rare /hpf (Few); Urobilinogen Urine Negative mg/dL (<2.0); WBC Urine 0-3 /hpf
== END 2021-06-11 11:39 | disposition home or self-care (01) ==
LOC: ANHLAB 11:41
PROVIDERS: PCP Internal Medicine; Visit Provider Internal Medicine
DX: R10.9 Unspecified abdominal pain (principal)
CPT/HCPCS: 81001

== ENCOUNTER 2021-06-11 17:48 | Emergency (ER) | payer OTHER, SELFPAY ==
[2021-06-11] VITALS (12 sets, daily range): BP systolic 146–158; BP diastolic 68–82; PULSE 62–72; RESP 12–19; TEMP 37.3; O2SAT 93–100
--- NOTE | ~2021-06-11 | CT_ITS ---
EXAMINATION: CT abdomen pelvis wo con DATE: 06/11/2021 20:47 INDICATION: Left flank pain, urinary pressure and burning. Hematuria. TECHNIQUE: Computed tomography (CT) of the abdomen and pelvis was performed without intravenous contr ast. Automated exposure control and iterative reconstruction technique were employed. Exam dose: 105 6.42 mGy-cm total exam DLP. COMPARISON: None. FINDINGS: 2.3 x 4.3 mm and 3 mm middle lobe nodules normal heart size. Coronary artery calcification. No pericardial or pleural effusion. The lungs are clear of infiltrate or consolidation. Small sliding hiatal hernia. Status post cholecystectomy. Chronic benign 8 x 14 mm prominent calcification at the posterior aspect of the right hepatic lobe. T here is an adjacent 13 mm hepatic cyst. The liver, spleen, pancreas, and adrenal glands are otherwise unremarkable on this limited noncontrast examination. No right renal mass lesion. There is prominent scarring and some volume loss of the left kidney likely due to chronic pyelonephri tis. No urinary tract calculus or hydroureteronephrosis. The urinary bladder is unremarkable. Status post hysterectomy. Normal caliber of the abdominal aorta. No intraperitoneal or retroperitoneal or pelvic mass lesion or adenopathy or ascites. Minimal colonic diverticulosis; no CT evidence of diverticulitis. No bowel obstruction, bowel wall th ickening, pneumatosis or intraperitoneal free air. Diffuse idiopathic skeletal hyperostosis of the thoracic spine. Severe degenerative disc disease at L5-S1 associated mild retrolisthesis. IMPRESSION: Scarring and volume loss of left kidney likely due to chronic pyelonephritis No urinary tract calculus or hydroureteronephrosis Benign 13 mm hepatic cyst and adjacent benign posterior right hepatic calcification Status post cholecystectomy Status post hysterectomy Reviewed, dictated and finalized at [facility]. Reviewed, dictated and finalized at location [facility]. 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
[2021-06-11 20:38] LABS: Basophils Absolute Auto 0.1 K/mm3 (0.0-0.1); Eosinophils Absolute Auto 0.1 K/mm3 (0-0.3); Eosinophils Percent Auto 1.8 % (0-4.4); Hematocrit 44.3 % (37.0-47.0); Hemoglobin 14.2 g/dL (12.0-15.0); Immature Granulocyte Absolute 0.01 K/mm3 (0.00-0.031); Immature Granulocyte Percent A 0.2 % (0-0.5); Lymphocytes Absolute Auto 1.82 K/mm3 (0.9-3.2); Lymphocytes Percent Auto 36.2 % (18.3-44.2); Mean Corpuscular HGB Conc 32.1 g/dl (32-36); Mean Corpuscular Hemoglobin 28.7 pg (26-34); Mean Corpuscular Volume 89.5 fl (80-100); Mean Platelet Volume 12.3 fl (7.4-10.4); Monocytes Absolute Auto 0.4 K/mm3 (0.1-0.6); Monocytes Percent Auto 8.2 % (2.6-8.5); Neutrophils Absolute Auto 2.7 K/mm3 (1.3-6.7); Neutrophils Percent Auto 52.6 % (45.5-73.1); Platelet Count Result 158 k/mm3 (150-375); Red Blood Count 4.95 M/mm3 (4.2-5.4); Red Cell Distribution Width 13.1 % (11.5-14.5)
[2021-06-11 20:52] LABS: Alanine Aminotransferase 24 U/L (4-35); Albumin Level 4.3 g/dL (3.5-5.1); Alkaline Phosphatase 41 U/L (38-126); Anion Gap 5 mmol/L (8-16); Aspartate Amino Transferase 31 U/L (14-36); Bilirubin,Total 0.5 mg/dL (0.2-1.3); Blood Urea Nitrogen 17 mg/dL (7-17); Carbon Dioxide 29 mmol/L (22-30); Chloride 107 mmol/L (98-107); Estimated CRCL calculation 60 ml/min; Estimated Glomerular Filt Rate > 60; Glucose 85 mg/dL (65-110); Potassium 4.2 mmol/L (3.4-5.0); Sodium 141 mmol/L (137-145)
--- NOTE | 2021-06-11 20:55 | ED.FEMALEGU ---
HPI - Female Genitourinary General Chief complaint: Urogenital-Female Stated complaint: left flank pain Time Seen by Provider: 06/11/21 20:24 Source: patient History of Present Illness HPI Narrative: Patient presents with back pain. She reports she has had back pain for the past several days. Pain is getting progressively worse is predominant on the left side and radiates to her left flank. Sharp, constant, worse with bending over. Saw her primary care doctor and had urine performed and no blood referred her to the ER for further evaluation. Reports she took an antibiotic home but did not alleviate her symptoms. She denies any trauma she denies any IV drug use denies any recent spinal instrumentation. Related Data Home Medications Medication Instructions Recorded Confirmed acetaminophen 500 mg tablet 500 mg PO Q6H PRN 06/15/19 05/06/21 aspirin 81 mg tablet,delayed 81 mg PO DAILY 06/15/19 05/06/21 release cholecalciferol (vitamin D3) 50 2,000 unit PO DAILY 06/15/19 05/06/21 mcg (2,000 unit) capsule famotidine 20 mg PO DAILY 05/06/21 05/06/21 simvastatin 40 mg PO HS 05/06/21 05/06/21 Allergies Allergy/AdvReac Type Severity Reaction Status Date / Time furosemide Allergy Severe couldnt Verified 05/14/21 07:01 move or walk hydrochlorothiazide Allergy Severe couldnt Verified 05/14/21 07:01 move or walk Iodinated Contrast Media Allergy Severe Hives Verified 05/14/21 07:01 iodine Allergy Intermediate HIVES Verified 05/14/21 07:01 codeine AdvReac Mild upset Verified 05/14/21 07:01 stomach Review of Systems Review of Systems: CONSTITUTIONAL: Denies fever, chills, or sweats. EYES: Denies visual changes, redness, or discharge. ENT: Denies rhinorrhea, congestion, sore throat, or otalgia. CARDIOVASCULAR: Denies chest pain, palpitations, or edema. RESPIRATORY: Denies cough or dyspnea. GASTROINTESTINAL: Denies abdominal pain, nausea, vomiting, or diarrhea. GENITOURINARY: Denies dysuria or hematuria. SKIN: Denies rash or itching. MUSCULOSKELETAL: Denies joint pain, or myalgia. NEUROLOGIC: Denies headache, numbness, dizziness, or weakness. PSYCHIATRIC: Denies anxiety or depression. All systems reviewed & are unremarkable except as noted in HPI and below PMFSH Past Medical History Medical History History of anxiety History of depression Hyperlipidemia Hypertension PONV (postoperative nausea and vomiting) Surgical History Surgical History History of bilateral breast reduction surgery History of cardiac cath History of hysterectomy History of tubal ligation Hx of carpal tunnel repair S/P cholecystectomy Family History Family History Sibling Family history of gastrointestinal disorder Lung cancer Mother , age 61 Family history of chronic obstructive pulmonary disease Family history of malignant neoplasm of breast in first degree relative, Onset Age: 61 Father , age 57 Lymphoma Son , age 30 Esophageal cancer Other Family history of malignant neoplasm of esophagus Social History Social History Smoking status: Never smoker Second hand tobacco smoke exposure: Yes Alcohol intake: never Substance use: never Substance use type: does not use 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 HEAD: Normocephalic, atraumatic. EYES: PERRLA and EOMI. ENT: Nares clear, no rhinorrhea or epistaxis. Mucous membranes moist. NECK: Supple. No masses. No JVD CHEST: Clear to auscultation. No respiratory distress. No wheezes rales or rhonchi HEART: Regular
[2021-06-11 21:06] LABS: Add Urine Microscopic? YES; Appearance Urine Clear (Clear); Bilirubin Urine Negative (Negative); Blood Urine 1+ (Negative); Color Urine Yellow (Yellow); Glucose Urine UA Negative (Negative); Ketones Urine Negative (Negative); Leukocyte Esterase Ur 1+ LEU/UL (Negative); Mucus Urine Rare /lpf; Nitrate Urine Negative (Negative); Protein Urine Negative (Negative); Specific Grav Ur 1.019 (1.001-1.035); Urobilinogen Urine Negative mg/dL (<2.0)
[2021-06-11] MEDS: KETOROLAC 15 MG/ML VIAL (*BKC) IV PUSH (22:20)
== END 2021-06-11 22:30 | disposition home or self-care (01) ==
PROVIDERS: Emergency Medicine; Emergency Provider Emergency Medicine; PCP Internal Medicine
DX: N39.0 Urinary tract infection, site not specified (principal); Z79.82 Long term (current) use of aspirin; E78.5 Hyperlipidemia, unspecified; I10 Essential (primary) hypertension; F41.9 Anxiety disorder, unspecified; F32.A Depression, unspecified
CPT/HCPCS: 36415; 74176; 80053; 81001; 85025; 87086; 96374; 99284; J1885

== ENCOUNTER 2021-08-19 10:28 | Outpatient (CLI) | payer OTHER, SELFPAY ==
[2021-08-19 10:43] LABS: Basophils Percent Auto 0.6 % (0.2-1.2); Eosinophils Absolute Auto 0.1 K/mm3 (0-0.3); Eosinophils Percent Auto 1.8 % (0-4.4); Hematocrit 41.9 % (37.0-47.0); Hemoglobin 13.7 g/dL (12.0-15.0); Immature Granulocyte Absolute 0.02 K/mm3 (0.00-0.031); Immature Granulocyte Percent A 0.3 % (0-0.5); Lymphocytes Absolute Auto 1.36 K/mm3 (0.9-3.2); Lymphocytes Percent Auto 19.3 % (18.3-44.2); Mean Corpuscular HGB Conc 32.7 g/dl (32-36); Mean Corpuscular Hemoglobin 28.7 pg (26-34); Mean Corpuscular Volume 87.7 fl (80-100); Mean Platelet Volume 11.5 fl (7.4-10.4); Monocytes Absolute Auto 0.5 K/mm3 (0.1-0.6); Monocytes Percent Auto 7.4 % (2.6-8.5); Neutrophils Percent Auto 70.6 % (45.5-73.1); Platelet Count Result 146 k/mm3 (150-375); Red Blood Count 4.78 M/mm3 (4.2-5.4); Red Cell Distribution Width 13.1 % (11.5-14.5)
[2021-08-19 11:03] LABS: Alanine Aminotransferase 22 U/L (6-35); Albumin Level 4.1 g/dL (3.5-5.1); Alkaline Phosphatase 45 U/L (38-126); Anion Gap 5 mmol/L (8-16); Aspartate Amino Transferase 24 U/L (14-36); Bilirubin,Total 0.7 mg/dL (0.2-1.3); Blood Urea Nitrogen 17 mg/dL (7-17); Carbon Dioxide 27 mmol/L (22-30); Chloride 105 mmol/L (98-107); Cholesterol 193 mg/dL (0-200); Estimated Glomerular Filt Rate 56; Glucose 89 mg/dL (65-110); HDL Direct 55 mg/dL; Potassium 4.1 mmol/L (3.4-5.0); Sodium 137 mmol/L (137-145); Triglycerides 84 mg/dL (<150)
[2021-08-19 11:14] LABS: LDL Cholesterol Direct 103 mg/dL
[2021-08-19 11:28] LABS: Vitamin D 25 Hydroxy 50.6 ng/mL
[2021-08-19 13:55] LABS: Folic Acid 14.1 ng/mL (2.76->20)
== END 2021-08-19 10:29 | disposition home or self-care (01) ==
LOC: ANHLAB 10:30
PROVIDERS: PCP Internal Medicine; Visit Provider Internal Medicine
DX: E55.9 Vitamin D deficiency, unspecified (principal); E78.5 Hyperlipidemia, unspecified; R53.83 Other fatigue
CPT/HCPCS: 36415; 80053; 80061; 82306; 82607; 82746; 84443; 85025

== ENCOUNTER 2022-03-10 12:07 | Outpatient (CLI) | payer OTHER, SELFPAY ==
--- NOTE | ~2022-03-10 | US_ITS ---
EXAMINATION: US venous doppler [facility] DATE: 03/10/2022 13:02 INDICATION: R22.42 - Localized swelling, mass and lump, left lower limb . TECHNIQUE: Grayscale images without and with compression and Doppler images of the left lower extremi ty veins were obtained. COMPARISON: 06/06/2014. FINDINGS: The left common femoral vein, profunda femoral vein, femoral vein, popliteal vein, peroneal vein, pos terior tibial veins, gastrocnemius vein, and greater saphenous vein are patent. IMPRESSION: 1. Patent left lower extremity veins. No evidence of deep venous thrombosis. Reviewed, dictated and finalized at location [facility]. 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
[2022-03-10 14:32] LABS: Basophils Absolute Auto 0.1 K/mm3 (0.0-0.1); Basophils Percent Auto 1.5 % (0.2-1.2); Eosinophils Absolute Auto 0.1 K/mm3 (0-0.3); Eosinophils Percent Auto 1.9 % (0-4.4); Hematocrit 43.6 % (37.0-47.0); Hemoglobin 14.1 g/dL (12.0-15.0); Lymphocytes Absolute Auto 1.31 K/mm3 (0.9-3.2); Lymphocytes Percent Auto 31.7 % (18.3-44.2); Mean Corpuscular HGB Conc 32.3 g/dl (32-36); Mean Corpuscular Hemoglobin 28.9 pg (26-34); Mean Corpuscular Volume 89.3 fl (80-100); Mean Platelet Volume 12.2 fl (7.4-10.4); Monocytes Absolute Auto 0.4 K/mm3 (0.1-0.6); Monocytes Percent Auto 8.5 % (2.6-8.5); Neutrophils Absolute Auto 2.3 K/mm3 (1.3-6.7); Neutrophils Percent Auto 56.4 % (45.5-73.1); Platelet Count Result 161 k/mm3 (150-375); Red Blood Count 4.88 M/mm3 (4.2-5.4); White Blood Count 4.1 K/mm3 (4.5-10.0)
[2022-03-10 14:37] LABS: Alanine Aminotransferase 28 U/L (6-35); Albumin Level 4.5 g/dL (3.5-5.1); Alkaline Phosphatase 51 U/L (38-126); Anion Gap 9 mmol/L (8-16); Aspartate Amino Transferase 25 U/L (14-36); Bilirubin,Total 0.5 mg/dL (0.2-1.3); Blood Urea Nitrogen 12 mg/dL (7-17); Calcium 9.1 mg/dL (8.4-10.2); Carbon Dioxide 26 mmol/L (22-30); Chloride 107 mmol/L (98-107); Cholesterol 193 mg/dL (0-200); Estimated Glomerular Filt Rate > 60; Glucose 86 mg/dL (65-110); HDL Direct 58 mg/dL; Potassium 3.8 mmol/L (3.4-5.0); Sodium 142 mmol/L (137-145); Triglycerides 159 mg/dL (<150)
[2022-03-10 14:48] LABS: LDL Cholesterol Direct 100 mg/dL
[2022-03-10 14:58] LABS: Vitamin D 25 Hydroxy 33.2 ng/mL
== END 2022-03-10 12:08 | disposition home or self-care (01) ==
LOC: ANHIMG 12:11
PROVIDERS: PCP Internal Medicine; Visit Provider Internal Medicine
DX: R22.42 Localized swelling, mass and lump, left lower limb (principal); I10 Essential (primary) hypertension; M79.605 Pain in left leg; M79.89 Other specified soft tissue disorders; R53.83 Other fatigue; E78.5 Hyperlipidemia, unspecified; E55.9 Vitamin D deficiency, unspecified
CPT/HCPCS: 36415; 80053; 80061; 82306; 82607; 82746; 83735; 84443; 85025; 93971

== ENCOUNTER 2022-04-10 12:56 | Outpatient (CLI) | payer OTHER, SELFPAY ==
[2022-04-10 14:19] LABS: Influenza A QL RT-PCR Negative (Negative); Influenza B QL RT-PCR Negative (Negative); RSV RNA, RT-PCR Negative (Negative); SARS-CoV-2 RNA PCR Negative
== END 2022-04-10 12:57 | disposition home or self-care (01) ==
LOC: ANHLAB 12:58
PROVIDERS: PCP Internal Medicine; Visit Provider Physician Assistant
DX: R68.89 Other general symptoms and signs (principal); Z20.822 Contact with and (suspected) exposure to COVID-19
CPT/HCPCS: 87637

== ENCOUNTER 2022-05-01 08:23 | Outpatient (CLI) | payer OTHER, SELFPAY ==
--- NOTE | 2022-05-01 10:45 | NEURO_ITS ---
Impression: Patient reports a history of left lower extremity pain. # Normal nerve conduction study. # Normal needle/EMG exam. # Clinical correlation recommended. Motor Nerve Conduction Lower Extremities Peroneal Nerve Conduction Velocity (m/sec) Terminal Latency (msec) Response Voltage(mV) Popliteal space-Ankle Ankle Extensor Dig Brevis Popliteal space Ankle Right 46-45 3.6 2-2 2 Left 44-43 3.5 1-2 2 Tibial Nerve Conduction Velocity (m/sec) Terminal Latency (msec) Response Voltage(mV) Popliteal space-Ankle Ankle-Extensor Dig Brevis Popliteal space Ankle Right 46 4.0 1 2 Left 45 3.8 2 3 F-waves Peroneal Nerve (ms) Tibial Nerve (ms) Right 52.8 52.7 Left 52.5 52.0 Sensory Nerve Conduction Lower Extremities Sural Nerve Stimulation Terminal Latency (msec) Ankle Response Voltage (uV) Ankle Response Velocity (m/sec) Right 3.7 6 43 Left 4.0 7 40 Superficial Peroneal Nerve Stimulation Terminal Latency (msec) Ankle Response Voltage (uV) Ankle Response Velocity (m/sec) Right 3.9 11 41 Left 3.8 9 42 Left Right Muscles Examined Fibrillation Fasciculation Scarcity Voltage Duration Left Right Left Right Left Right Left Right Left Right X X Ant Tibialis X X Gastroc X X Fibularis Long X X Flex Dig Long X X Ext Dig Brev Abd Hallucis Quadriceps Paraspinals MTDD
== END 2022-05-01 08:24 | disposition home or self-care (01) ==
LOC: ANHNEURO 08:26
PROVIDERS: PCP Internal Medicine; Visit Provider Internal Medicine
DX: G62.9 Polyneuropathy, unspecified (principal)
CPT/HCPCS: 95886; 95910

== ENCOUNTER 2022-06-23 09:17 | Emergency (ER) | payer OTHER, SELFPAY ==
[2022-06-23] VITALS (8 sets, daily range): BP systolic 158–181; BP diastolic 79–86; PULSE 74; RESP 16–20; TEMP 37.3; O2SAT 96–100
--- NOTE | ~2022-06-23 | XR_ITS ---
AP view of the pelvis and AP and lateral views of the right hip Clinical history: Pain Findings: No acute fracture or dislocation is seen. Osseous alignment is anatomic. Bilateral hip and SI joint spaces are preserved. Soft tissues are unremarkable. Impression: No significant abnormality is seen. Reviewed, dictated and finalized at [facility]. Impression: No significant abnormality is seen.
--- NOTE | ~2022-06-23 | XR_ITS ---
Right elbow Technique: AP, oblique, and lateral views were obtained. Clinical History: Pain Findings: No acute fracture or dislocation is seen. Osseous alignment is anatomic. Joint spaces are p reserved. There is no displacement of the fat pads, and soft tissues are unremarkable. Impression: Unremarkable radiographs. Reviewed, dictated and finalized at location . Impression: Unremarkable radiographs.
--- NOTE | ~2022-06-23 | XR_ITS ---
AP and oblique views of the bilateral ribs, and PA and lateral chest radiographs Clinical History: Pain Findings: No rib fracture is seen. Osseous alignment is anatomic. Lungs are clear, without focal cons olidation or pleural effusion. Cardiomediastinal contour is within normal limits. Soft tissues are un remarkable. Impression: No rib fracture is seen. Clear lungs. Reviewed, dictated and finalized at location . Impression: No rib fracture is seen. Clear lungs.
--- NOTE | 2022-06-23 09:30 | ED.FALL ---
HPI - Fall General Chief Complaint: Fall Stated Complaint: fall Source: patient Mode of arrival: EMS Limitations: no limitations History of Present Illness HPI Narrative: Patient is a 61 y/o female who presents to the ED via EMS with report of a fall. Patient reports she was walking into work and did not see a gutter that was extending out into the parking lot. She tripped over the gutter and fell onto her right side. She did not hit her head or lose consciousness. She states her right elbow took the majority of the fall. She did sustain a small laceration to her right elbow. She also complains of pain to her bilateral ribs, worse on her right side, causing mild difficulty breathing. Patient was eventually able to get up off the ground, but EMS was called. Patient has been able to ambulate, but is also complaining of pain to her right leg. She takes aspirin 81 mg daily, no other blood thinners. Tetanus status unknown. Patient denies any prodromal symptoms prior to the fall, denies dizziness, lightheadedness, vision changes, nausea, vomiting, abdominal pain. Related Data Home Medications Medication Instructions Recorded Confirmed acetaminophen 500 mg tablet 500 mg PO Q6H PRN Pain 06/15/19 03/20/22 (Tylenol Extra Strength) aspirin 81 mg tablet,delayed 81 mg PO DAILY 06/15/19 03/20/22 release (Adult Low Dose Aspirin) cholecalciferol (vitamin D3) 50 2,000 unit PO DAILY 06/15/19 03/20/22 mcg (2,000 unit) capsule Allergies Allergy/AdvReac Type Severity Reaction Status Date / Time furosemide Allergy Severe couldnt Verified 06/23/22 09:33 move or walk hydrochlorothiazide Allergy Severe couldnt Verified 06/23/22 09:33 move or walk Iodinated Contrast Media Allergy Severe Hives Verified 06/23/22 09:33 iodine Allergy Intermediate HIVES Verified 06/23/22 09:33 codeine AdvReac Mild upset Verified 06/23/22 09:33 stomach Review of Systems Review of Systems: CONSTITUTIONAL: Denies fever, chills, or sweats. EYES: Denies visual changes. CARDIOVASCULAR: Denies chest pain. RESPIRATORY: See HPI. GASTROINTESTINAL: Denies abdominal pain, nausea, vomiting. SKIN: See HPI. MUSCULOSKELETAL: See HPI. NEUROLOGIC: Denies dizziness, lightheadedness, head injury, LOC, headache, numbness, or weakness. All systems reviewed & are unremarkable except as noted in HPI and below PMFSH Past Medical History Medical History History of anxiety History of depression Hyperlipidemia Hypertension PONV (postoperative nausea and vomiting) Surgical History Surgical History History of bilateral breast reduction surgery History of cardiac cath History of hysterectomy History of tubal ligation Hx of carpal tunnel repair S/P cholecystectomy Family History Family History Sibling Family history of gastrointestinal disorder Lung cancer Mother , age 61 Family history of chronic obstructive pulmonary disease Family history of malignant neoplasm of breast in first degree relative, Onset Age: 61 Father , age 57 Lymphoma Son , age 30 Esophageal cancer Other Family history of malignant neoplasm of esophagus Social History Social History Smoking status: Never smoker Second hand tobacco smoke exposure: Yes Alcohol intake: never Substance use: never Substance use type: does not use Lack of Transportation: No Lack of Food: Never True Current Housing: I Have Housing Concerned About Future Housing: No Difficulty Paying Gas/Electric Bills: No Difficulty Paying for Meds: YES Currently Unemployed: No Education: Trade/Vocational Certificate Difficulty w/ Childcare or Family Care: No Living arrangements: with family Occupation
[2022-06-23] MEDS: MORPHINE SULFATE (*CRX) 4 MG/ML INJ IV PUSH (09:49)
[2022-06-23] MEDS: ONDANSETRON INJ 4 MG/2 ML VIAL IV PUSH (09:49)
[2022-06-23] MEDS: TETANUS,DIPHTHERIA,AC PERTUSSIS ADULT (0.5 ML) BOOSTRIX IM (11:06)
[2022-06-23] MEDS: KETOROLAC 15 MG/ML VIAL (*BKC) IV PUSH (11:12)
== END 2022-06-23 11:20 | disposition home or self-care (01) ==
PROVIDERS: Emergency Provider Physician Assistant; PCP Internal Medicine
DX: S51.011A Laceration without foreign body of right elbow, initial encounter (principal); S53.401A Unspecified sprain of right elbow, initial encounter; Z23 Encounter for immunization; E78.5 Hyperlipidemia, unspecified; I10 Essential (primary) hypertension; Z90.710 Acquired absence of both cervix and uterus; Z79.82 Long term (current) use of aspirin; W18.09XA Striking against other object with subsequent fall, initial encounter
CPT/HCPCS: 12001; 71046; 71110; 73080; 73502; 90471; 90715; 96374; 96375; 99284; J1885; J2270; J2405

== ENCOUNTER 2022-08-04 13:35 | Outpatient (CLI) | payer OTHER, SELFPAY ==
--- NOTE | ~2022-08-04 | XR_ITS ---
EXAMINATION: XR lumbar spine 2-3V DATE: 08/04/2022 14:10 INDICATION: Low back pain. TECHNIQUE: 3 views of lumbar spine were obtained. COMPARISON: Lumbar spine radiographs 01/06/2016 FINDINGS: There is 12 degrees levoscoliosis of lumbar spine. Vertebral body heights are normal. There is mildly decreased disc height at L3-L4 and L4-L5 and severely decreased disc height at L5-S1. Ther e are endplate osteophytes at multiple levels. There is multilevel facet joint arthritis, severe in l ower lumbar spine. Surgical clips in the right upper quadrant are likely from cholecystectomy. IMPRESSION: 1. Severe lumbar spondylosis, worsened from 01/06/2016. 2. Lumbar levoscoliosis. Reviewed, dictated and finalized at location [facility].
== END 2022-08-04 13:36 | disposition home or self-care (01) ==
LOC: CHSIMG 13:37
PROVIDERS: PCP Internal Medicine; Visit Provider Internal Medicine
DX: M54.9 Dorsalgia, unspecified (principal); M43.06 Spondylolysis, lumbar region; M41.86 Other forms of scoliosis, lumbar region
CPT/HCPCS: 72100

== ENCOUNTER 2022-08-07 10:44 | Outpatient (RCR) | payer OTHER, SELFPAY ==
--- NOTE | 2022-08-07 12:03 | PTOPEVAL1 ---
Assessment and note entered by JT File, PT Evaluation Information Assessment Status Evaluation Diagnosis low back pain, R LE radiculopathy, sciatica Onset 06/23/22 Subjective Information patient reports she fell on concrete at work. she reports this is not going through work comp. she reports she was off for 2 weeks after the fall, but then went back to work. she was good for few days, but then was unable to stand due to her sciatic nerve pain. she reports she has had an xray of the lumbar spine this week (showing severe lumbar spondylosis especially at L5/S1). she reports she has pain that radiates down the R LE, and she has to use a walker to revlieve the pain in the R LE. she reports she tripped over concrete and fell to the ground. she reports she fell on the R side. she reports she has not had any back pain or sciatica in the past. she reports her MD would like her to try PT, an MRI, and possibly injections to the lumbar spine. she reports she has increased pain with walking, standing, and laying down on her back. 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 she reports she is unable to lay on the R side, but tolerates the L side. she reports she uses heat and ice off and on to help with the pain. she reports she has pain down the R LE from the lower back to the R foot/ankle. Reported Pain Level Pain Score 8: Self Report Assessment PT Clinical Summary mrs. barber is a 61 yo female who presents to skilled PT services for evaluation and treatment of lower back pain and R LE radicular symptoms following a fall at work. she presents this date with signs and symptoms consistent with an acute flare up of DDD/facet arthropathy and spodylosis from her fall on the R side. she displays decreased lumbar rom, weakness of the LE's and core, and abnormal gait/functional activity performance. she would benefit from continued skilled PT address her objective/functional deficits and return to her prior level functional activity performance and quality of life. Plan of Care Interventions Electrical Stimulation,Gait Training,Hot Pack/Cold Pack,Manual Therapy,Mechanical Traction,Neuro Re- education,Patient/Caregiver Educati,Therapeutic Activities,Therapeutic Exercise PT Services Indicated Yes Treatment Frequency and 3x weekly f
== END 2022-10-07 23:59 | disposition home or self-care (01) ==
LOC: CHSPT 10:44
PROVIDERS: PCP Internal Medicine; Visit Provider Internal Medicine
DX: M54.50 Low back pain, unspecified (principal)
CPT/HCPCS: 97014; 97110; 97116; 97140; 97161; 97530; G0283

== ENCOUNTER 2022-08-12 15:08 | Outpatient (CLI) | payer OTHER, SELFPAY ==
--- NOTE | ~2022-08-12 | MR_ITS ---
MRI of the lumbar spine Clinical History: Back pain Technique: Axial T2-weighted images, and sagittal T1-weighted, T2-weighted, and T2 fat-sat images wer e acquired. Findings: There is no fracture or subluxation of the lumbar spine. Vertebral bodies maintain normal h eight and alignment. No suspicious bone marrow signal abnormality seen. At L1-L2, there is facet arthropathy. No disc bulge or herniation. No spinal canal stenosis or neural foraminal narrowing. At L2-L3, there is mild degenerative disc narrowing with minimal disc bulge. There is moderate facet arthropathy. No gracie central canal stenosis. Bilateral neural foramina are preserved. At L3-L4, there is moderate degenerative disc narrowing. Disc bulge and facet arthropathy contribute to mild central canal stenosis. There is minimal right neural foraminal narrowing. Left neural forame n preserved. At L4-L5, there is mild degenerative disc narrowing. Diffuse disc bulge with probable small superimpo sed central disc protrusion, in conjunction with advanced facet arthropathy, resulting in moderate to severe thecal sac compression/spinal canal stenosis. Right neural foramen is moderately narrowed. Le ft neural foramen preserved. At L5-S1, there is degenerative disc narrowing. Central disc extrusion is present, without gracie cent ral canal stenosis/thecal sac compression. There is severe left neural foraminal narrowing and modera te right neural foraminal narrowing. Paravertebral soft tissues are unremarkable. Impression: Moderate degenerative spondylosis from L3-L4 through L5-S1, as detailed above. Minimal degenerative changes at L1-L2 and L2-L3, as detailed above. Reviewed, dictated and finalized at [facility]. Impression: Moderate degenerative spondylosis from L3-L4 through L5-S1, as detailed above. Minimal degenerative changes at L1-L2 and L2-L3, as detailed above.
== END 2022-08-12 15:09 | disposition home or self-care (01) ==
PROVIDERS: PCP Internal Medicine; Visit Provider Internal Medicine
DX: M47.26 Other spondylosis with radiculopathy, lumbar region (principal); M51.36 Other intervertebral disc degeneration, lumbar region
CPT/HCPCS: 72148

== ENCOUNTER 2022-10-17 10:17 | Outpatient (CLI) | payer OTHER, SELFPAY ==
[2022-10-17 10:31] LABS: Hematocrit 42.3 % (35.0-49.0); Hemoglobin 13.8 g/dL (12.0-15.0); Mean Corpuscular HGB Conc 32.6 g/dL (32.0-36.0); Mean Corpuscular Hemoglobin 28.9 pg (27.0-31.0); Mean Corpuscular Volume 88.5 fL (78.0-102.0); Mean Platelet Volume 11.7 fl (9.2-11.8); Platelet Count Result 155 K/mm3 (150-420); Red Blood Count 4.78 M/mm3 (4.20-5.40); Red Cell Distribution Width 13.2 % (11.6-14.4); White Blood Count 3.4 K/mm3 (4.8-10.8)
[2022-10-17 11:02] LABS: Band Neutrophils Percent 0 % (0-6); Lymphocytes Absolute Manual 1.46 K/mm3 (1.1-4.5); Lymphocytes Percent Manual 43 % (18-44); Neutrophils Absolute Manual 1.63 K/mm3 (1.7-7.2); Neutrophils Percent Manual 48 % (46-73); Total Cells Counted 100
[2022-10-17 11:03] LABS: Basophils Absolute Manual 0.03 K/mm3 (0-0.1); Basophils Percent Manual 1 % (0-1); Eosinophils Absolute Manual 0.06 K/mm3 (0.02-0.5); Eosinophils Percent Manual 2 % (1-6); Monocytes Percent Manual 6 % (3-9); Platelet Estimate Adequate (Adequate)
[2022-10-17 11:06] LABS: Alanine Aminotransferase 30 U/L (14-59); Alkaline Phosphatase 47 U/L (46-116); Anion Gap 7 mmol/L (8-16); Aspartate Amino Transferase 14 U/L (15-37); Bilirubin,Total 0.6 mg/dL (0.00-1.00); Blood Urea Nitrogen 17 mg/dL (7-18); Carbon Dioxide 29 mmol/L (21-32); Chloride 106 mmol/L (98-108); Cholesterol 180 mg/dL (0-200); Estimated Glomerular Filt Rate 58; Glucose 90 mg/dL (70-99); HDL Direct 63 mg/dL (40-60); LDL Cholesterol Calculated 98 mg/dL (<130); Osmolality Calculated 295 mOsm/kg (285-295); Potassium 4.4 mmol/L (3.5-5.1); Sodium 142 mmol/L (136-145); Thyroid Stimulating Hormone 2.95 uIU/mL (0.36-3.74); Triglycerides 93 mg/dL (0-150)
[2022-10-23 16:19] LABS: Vitamin D 25 Hydroxy 35 ng/mL (30-100)
== END 2022-10-17 10:18 | disposition home or self-care (01) ==
LOC: CHSLAB 10:18
PROVIDERS: PCP Internal Medicine; Visit Provider Internal Medicine
DX: R53.83 Other fatigue (principal); I10 Essential (primary) hypertension; E78.5 Hyperlipidemia, unspecified; E55.9 Vitamin D deficiency, unspecified
CPT/HCPCS: 36415; 80053; 80061; 82306; 84443; 85025

== ENCOUNTER 2022-12-10 14:11 | Outpatient (CLI) | payer OTHER, SELFPAY ==
--- NOTE | ~2022-12-10 | MM_ITS ---
EXAMINATION: MM screening [facility] BI w sanchez HISTORY: Screening mammogram, family history of breast cancer in her mother. TECHNIQUE: Craniocaudal and mediolateral oblique 3-D tomosynthesis images were obtained and synthetic 2-D images were generated. CAD analysis was submitted and interpreted. COMPARISON: 10/01/2020, 08/29/2020, 06/16/2019, 07/21/2017 BREAST PARENCHYMAL COMPOSITION: There are scattered areas of fibroglandular density. FINDINGS: Stable right breast masses are consistent with benign findings given the lack of interval c hange. There has been interval excisional biopsy on the left. No suspicious mass, calcification, or a rchitectural distortion are identified in either breast to suggest malignancy. There has been no susp icious interval change. IMPRESSION: 1. No mammographic evidence of malignancy. 2. Recommend routine screening mammography in one year. BI-RADS Category 2: Benign finding(s). Reviewed, dictated and finalized at location A.
== END 2022-12-10 14:12 | disposition home or self-care (01) ==
LOC: CHSIMG 14:12
PROVIDERS: PCP Internal Medicine; Visit Provider Internal Medicine
DX: Z12.31 Encounter for screening mammogram for malignant neoplasm of breast (principal)
CPT/HCPCS: 77063; 77067

== ENCOUNTER 2022-12-17 09:02 | Outpatient (CLI) | payer OTHER, SELFPAY ==
--- NOTE | 2022-12-17 11:00 | NEURO_ITS ---
Impression: # Complains of lower back pain and pain and numbness in legs. # Normal Nerve Conduction Study including F-waves. # Normal needle/EMG without neurogenic changes. # Clinical correlation recommended. Nerve Conduction Studies Anti Sensory Summary Table Stim Site NR Peak (ms) P-T Amp (?V) Site1 Site2 Delta-P (ms) Dist (cm) Ashok (m/s) Left Sup Fibular Anti Sensory (Ant Lat Mall) 14 cm 3.8 3.9 14 cm Ant Lat Mall 3.8 16.0 42 Right Sup Fibular Anti Sensory (Ant Lat Mall) 14 cm 3.5 4.3 14 cm Ant Lat Mall 3.5 16.0 46 Left Sural Anti Sensory (Lat Mall) Calf 3.6 7.2 Calf Lat Mall 3.6 16.0 44 Right Sural Anti Sensory (Lat Mall) Calf 3.6 13.3 Calf Lat Mall 3.6 16.0 44 Motor Summary Table Stim Site NR Onset (ms) O-P Amp (mV) Site1 Site2 Delta-0 (ms) Dist (cm) Ashok (m/s) Left Peroneal Motor (Vastus Med) Ankle 3.9 2.6 Popit Ankle 8.2 37.0 45 Popit 12.1 1.9 Right Peroneal Motor (Vastus Med) Ankle 3.9 1.8 Popit Ankle 8.0 37.0 46 Popit 11.9 1.3 Left Tibial Motor (Abd Moraes Brev) Ankle 4.5 2.1 Knee Ankle 8.9 39.0 44 Knee 13.4 1.9 Right Tibial Motor (Abd Moraes Brev) Ankle 4.3 2.8 Knee Ankle 9.2 40.0 43 Knee 13.5 3.2 F Wave Studies NR F-Lat (ms) L-R F-Lat (ms) Left Peroneal (Mrkrs) (EDB) 53.12 0.63 Right Peroneal (Mrkrs) (EDB) 53.75 0.63 Left Tibial (Mrkrs) (Abd Hallucis) 54.30 0.09 Right Tibial (Mrkrs) (Abd Hallucis) 54.39 0.09 EMG Side Muscle Nerve Root Ins Act Fibs Amp Dur Recrt Comment Right AntTibialis Dp Br Fibular L4-5 Nml Nml Nml Nml Nml Right Gastroc Tibial S1-2 Nml Nml Nml Nml Nml Right Fibularis Long Sup Br Fibular L5-S1 Nml Nml Nml Nml Nml Right Flex Dig Long Tibial L5-S2 Nml Nml Nml Nml Nml Right Ext Dig Brev Dp Br Fibular L5, S1 Nml Nml Nml Nml Nml Left AntTibialis Dp Br Fibular L4-5 Nml Nml Nml Nml Nml Left Gastroc Tibial S1-2 Nml Nml Nml Nml Nml Left Fibularis Long Sup Br Fibular L5-S1 Nml Nml Nml Nml Nml Left Flex Dig Long Tibial L5-S2 Nml Nml Nml Nml Nml Left Ext Dig Brev Dp Br Fibular L5, S1 Nml Nml Nml Nml Nml Right QuadratusFem QuadFemoris L4-5, S1 Nml Nml Nml Nml Nml Left QuadratusFem QuadFemoris L4-5, S1 Nml Nml Nml Nml Nml MTDD
== END 2022-12-17 09:03 | disposition home or self-care (01) ==
PROVIDERS: PCP Internal Medicine; Visit Provider Internal Medicine
DX: G62.9 Polyneuropathy, unspecified (principal)
CPT/HCPCS: 95886; 95910

== ENCOUNTER 2023-01-22 11:46 | Outpatient (CLI) | payer OTHER, SELFPAY ==
--- NOTE | ~2023-01-22 | MMUS_ITS ---
EXAMINATION: MM diagnostic [facility] LT w sanchez, US breast LT limited HISTORY: Pain and left breast at 6:00 area and lateral left breast TECHNIQUE: Full field and spot ML, MLO and CC 3-D tomosynthesis images of the left breast were perfor med and synthetic 2-D images were generated. CAD analysis was submitted and interpreted. High resolut ion limited left breast ultrasound examination at 6:00 and at the upper outer and lower-outer quadran ts was performed. COMPARISON: 12/10/2022 bilateral screening mammogram 08/29/2020 bilateral screening mammogram 06/16/2019 bilateral screening mammogram 07/21/2017 bilateral screening mammogram BREAST PARENCHYMAL COMPOSITION: The breasts are almost entirely fatty. FINDINGS: MAMMOGRAPHIC FINDINGS: Occasional benign calcifications are noted. No suspicious mass or architectural distortion, malignant calcification, skin thickening or retraction or significant new or developing density is detected. ULTRASOUND: 12:00 12 cm from nipple: 2.1 x 2.5 mm circumscribed hypoechoic lesion without internal vascularity or posterior shadowing. No mammographic correlate is identified. 12:00 10 cm from nipple: Circumscribed 1.9 x 2.3 mm relatively sonolucent lesion without internal vas cularity or posterior shadowing, without apparent mammographic correlate. IMPRESSION: 1. Probably benign findings 2. 6 month diagnostic left mammogram and left breast ultrasound follow-up are recommended BI-RADS category 3, probably benign findings. Reviewed, dictated and finalized at location A. IMPRESSION: 1. Probably benign findings 2. 6 month diagnostic left mammogram and left breast ultrasound follow-up are r ecommended BI-RADS category 3, probably benign findings.
== END 2023-01-22 11:47 | disposition home or self-care (01) ==
PROVIDERS: PCP Internal Medicine; Visit Provider Physician Assistant
DX: N64.4 Mastodynia (principal); R92.8 Other abnormal and inconclusive findings on diagnostic imaging of breast
CPT/HCPCS: 76642; 77061; 77065; G0279

== ENCOUNTER 2023-03-16 15:02 | Outpatient (RCR) | payer OTHER, SELFPAY ==
--- NOTE | 2023-03-16 17:07 | PTOPEVAL1 ---
Assessment and note entered by Soham Blackmon Evaluation Information Assessment Status Evaluation Diagnosis lumbar radiculopathy Subjective Information Pt. reports she has been dealing with back and leg pain since June 23, after experiencing a fall at work. She describes pain shooting down the right leg and into the left thigh. She reports that the pain is constant on the right side. She states that she has returned to work but only light duty and sits in a chair majority of the day . She reports that she has increased pain with prolonged sitting and prolonged standing. She states that she can stand for about 15-20 minutes before pain increases and she has to sit down. she had 2 injection and her last injection on February 10, seemed to result in a slight decresae in her pain. She reports that she continues to use a cane for ambulation since her fall due to difficulty with standing. Reported Pain Level Pain Score 7: Self Report Assessment PT Clinical Summary Pt. is a 62 year old female who enters the clinic with lumbar radiculopathy and low back pain. She presents with proximal l.e. weakness, impaired postural awareness, impaired gait and pain on this date. Continued skilled PT is indicated in order to address mm. imbalance and promote improved lumbar mobility and strength, as well as to decrease pain. Plan of Care Interventions Electrical Stimulation,Hot Pack/Cold Pack,Manual Therapy,Mechanical Traction,Neuro Re-education, Patient/Caregiver Educati,Therapeutic Activities, Therapeutic Exercise PT Services Indicated Yes Treatment Frequency and 2x/week x 4 visits Duration These treatments will address the objective and functional deficits as defined above. The patient will be advanced safely and appropriately in order for the patient to progress towards his/her prior level of function. Additional exercises will be introduced and as well as a comprehensive home exercise program upon discharge, if needed, ?to ensure carryover of functional gains achieved in the clinic. This treatment plan has been reviewed and agreement upon by the patient.
== END 2023-03-20 20:00 | disposition home or self-care (01) ==
LOC: CHSPT 15:02
DX: M54.16 Radiculopathy, lumbar region (principal)
CPT/HCPCS: 97014; 97110; 97161; G0283

== ENCOUNTER 2023-03-24 08:35 | Outpatient (CLI) | payer OTHER, SELFPAY ==
[2023-03-24 09:49] LABS: Alanine Aminotransferase 27 U/L (6-35); Albumin Level 4.5 g/dL (3.5-5.1); Alkaline Phosphatase 39 U/L (38-126); Anion Gap 7 mmol/L (8-16); Aspartate Amino Transferase 26 U/L (14-36); Basophils Percent Auto 0.6 % (0.2-1.2); Bilirubin,Total 0.9 mg/dL (0.2-1.3); Blood Urea Nitrogen 15 mg/dL (7-17); Calcium 9.2 mg/dL (8.4-10.2); Carbon Dioxide 26 mmol/L (22-30); Chloride 106 mmol/L (98-107); Cholesterol 189 mg/dL (0-200); Eosinophils Percent Auto 1.2 % (0-4.4); Estimated Glomerular Filt Rate > 60; Glucose 84 mg/dL (65-110); HDL Direct 51 mg/dL; Hematocrit 41.4 % (37.0-47.0); Hemoglobin 13.4 g/dL (12.0-15.0); Lymphocytes Absolute Auto 1.12 K/mm3 (0.9-3.2); Lymphocytes Percent Auto 33.7 % (18.3-44.2); Mean Corpuscular HGB Conc 32.4 g/dl (32-36); Mean Corpuscular Hemoglobin 29.1 pg (26-34); Mean Corpuscular Volume 89.8 fl (80-100); Mean Platelet Volume 12.2 fl (7.4-10.4); Monocytes Absolute Auto 0.4 K/mm3 (0.1-0.6); Monocytes Percent Auto 10.5 % (2.6-8.5); Neutrophils Absolute Auto 1.8 K/mm3 (1.3-6.7); Platelet Count Result 150 k/mm3 (150-375); Potassium 4.2 mmol/L (3.4-5.0); Red Blood Count 4.61 M/mm3 (4.2-5.4); Red Cell Distribution Width 12.8 % (11.5-14.5); Sodium 139 mmol/L (137-145); Triglycerides 170 mg/dL (<150); White Blood Count 3.3 K/mm3 (4.5-10.0)
[2023-03-24 10:00] LABS: LDL Cholesterol Direct 100 mg/dL
[2023-03-24 11:04] LABS: Vitamin D 25 Hydroxy 23.7 ng/mL
== END 2023-03-24 08:36 | disposition home or self-care (01) ==
LOC: ANHLAB 08:41
PROVIDERS: PCP Internal Medicine; Visit Provider Internal Medicine
DX: R53.83 Other fatigue (principal); E78.5 Hyperlipidemia, unspecified; E55.9 Vitamin D deficiency, unspecified; I10 Essential (primary) hypertension
CPT/HCPCS: 36415; 80053; 80061; 82306; 84443; 85025

== ENCOUNTER 2023-04-17 08:55 | Outpatient (CLI) | payer OTHER, SELFPAY ==
[2023-04-17 10:34] LABS: Hemoglobin A1C 5.4 % (<5.7)
[2023-04-20 20:17] LABS: Red Blood Cell Folate 496 ng/mL RBC (>280)
== END 2023-04-17 08:56 | disposition home or self-care (01) ==
LOC: ANHLAB 08:57
PROVIDERS: PCP Internal Medicine; Visit Provider Student in an Organized Health Care Education/Training Program
DX: G62.9 Polyneuropathy, unspecified (principal)
CPT/HCPCS: 36415; 82607; 82747; 83036; 84443; 86334; 86335

== ENCOUNTER 2023-08-13 12:59 | Outpatient (RCR) | payer OTHER, SELFPAY ==
--- NOTE | 2023-08-13 15:01 | OPREHPOC ---
Outpatient Therapy Plan of Care This is a Multidisciplinary Plan of Care that may contain components documented by all disciplines (PT, OT, and ST.) PT Problem 1 PT Problem #1 Knowledge Deficit PT Goal 1 Goal Patient will be independent in a HEP. Target Visit 12 PT Problem 2 PT Problem #2 Pain PT Goal 1 Goal Patient will report no greater than 5/10 pain with daily tasks. Target Visit 12 PT Problem 3 PT Problem #3 Impaired Functional Mobil PT Goal 1 Goal Pt will display less than 50% self perceived disability per the LEFS. Target Visit 12 PT Problem 4 PT Problem #4 Impaired Strength PT Goal 1 Goal Pt will demonstrate 4/5 abdominal, hip extension, and hip abduction strength to support the pelvis and spine for lifting. Target Visit 12
--- NOTE | 2023-08-13 15:01 | PTOPEVAL1 ---
Assessment and note entered by Harriett Wong, PT Evaluation Information Assessment Status Evaluation Diagnosis Sacroiliitis, LBP Onset 06/23/22 Subjective Information Pollo Marin reports she has been having trouble with her lower back since June 23, 2022 after she tripped over a piece of asphalt in the parking lot of her work place and sustained rib contusions, a bruised elbow and chin, and back pain. She went back to work light duty and has worked on light duty since then. She had PT in July 2022. She has been having injections for the last year and she has gotten a little bit of relief but not a lot. She had a MRI in August 2022 that showed disc bulges in the lumbar spine. She had another MRI on 07/20/23 that showed her lumbar spine has gotten worse. She had an injection on to her lower back which has relieved some pain but she still has pressure. She was taken out of work by her pain management doctor, Dr. Erwin, for one month. She has pain across the lower back into the buttock that radiates into the back of her legs. She also has pain that refers up to the right side of trunk and ribs. She has been using heat, ice, and pain medication for pain relief. She reports pain is getting worse so she made an appointment with Dr. Marino Waite, a neurosurgeon, on 08/31/23. She reports she has difficulty showering, sitting for long periods, going up and down stairs, and standing for long periods. She reports she can't dance, she can't run, and she can't lift more than 5 lbs due to pain. 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 Reported Pain Level Pain Score 8: Self Report Assessment PT Clinical Summary Pollo Marin presents with chronic low back pain after falling in the parking lot at her place of employment in June 2022. She has had two MRI's over the past year that showed bulging discs. 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 She reports she can not run or dance like she did prior to her injury. She objectively demonstrates decreased and guarded lumbar AROM, decreased core and hip strength, altered gait, and decr
--- NOTE | 2023-09-10 14:37 | PCPTNOTE ---
Patient called & cancelled scheduled appointment this date due to high pain levels, reports she has a call in to the doctor. -Harriett Wong, PT
== END 2023-11-11 23:59 | disposition home or self-care (01) ==
LOC: CHSPT 12:59
DX: M46.1 Sacroiliitis, not elsewhere classified (principal)
CPT/HCPCS: 97014; 97110; 97161; G0283

== ENCOUNTER 2023-08-18 14:46 | Outpatient (CLI) | payer OTHER, SELFPAY | END 2023-08-18 14:47 | disposition home or self-care (01) | PROVIDERS: PCP Internal Medicine; Visit Provider Internal Medicine | DX: L65.9 Nonscarring hair loss, unspecified (principal) | CPT/HCPCS: 36415; 84443 ==

== ENCOUNTER 2023-12-15 13:15 | Emergency (ER) | payer OTHER, SELFPAY ==
[2023-12-15 13:20] VITALS: BP 165/125; PULSE 87; RESP 23; TEMP 36.7; O2SAT 100
--- NOTE | 2023-12-15 13:31 | ED.BACK ---
HPI - Back Pain/Injury General Chief Complaint: Back Pain/Injury Stated Complaint: siatiac nerve pain Time Seen by Provider: 12/15/23 13:19 History of Present Illness HPI Narrative: patient has history of sciatica since she had a fall, for which she has already gone spine injection which she thinks made things worse, presents here with acute exacerbation of her chronic sciatic pain that is bilateral. No saddle anesthesia, difficulty urinating, she does have pain from her back that radiates down both sides with some tingling Related Data Home Medications Medication Instructions Recorded Confirmed acetaminophen 500 mg tablet 500 mg PO Q6H PRN Pain 06/15/19 12/02/23 (Tylenol Extra Strength) aspirin 81 mg tablet,delayed 81 mg PO DAILY 06/15/19 12/02/23 release (Adult Low Dose Aspirin) Allergies Allergy/AdvReac Type Severity Reaction Status Date / Time furosemide Allergy Severe couldnt Verified 12/02/23 07:41 move or walk hydrochlorothiazide Allergy Severe couldnt Verified 12/02/23 07:41 move or walk Iodinated Contrast Media Allergy Severe Hives Verified 12/02/23 07:41 iodine Allergy Intermediate HIVES Verified 12/02/23 07:41 codeine AdvReac Mild upset Verified 12/02/23 07:41 stomach Review of Systems Review of Systems: All systems reviewed & are unremarkable except as noted in HPI and below PMFSH Past Medical History Medical History History of anxiety History of depression Hyperlipidemia Hypertension PONV (postoperative nausea and vomiting) Surgical History Surgical History History of bilateral breast reduction surgery History of cardiac cath History of hysterectomy History of tubal ligation Hx of carpal tunnel repair S/P cholecystectomy Family History Family History Sibling Family history of gastrointestinal disorder Lung cancer Mother , age 61 Family history of chronic obstructive pulmonary disease Family history of malignant neoplasm of breast in first degree relative, Onset Age: 61 Father , age 57 Lymphoma Son , age 30 Esophageal cancer Other Family history of malignant neoplasm of esophagus Social History Social History Smoking packs per day: 0 Smoking cigarettes per day: 0.0 Years smoked: 0 Smoking pack-years: 0.00 Smoking status: Never smoker Second hand tobacco smoke exposure: Yes Alcohol intake: never Substance use: never Substance use type: does not use Do You Feel Safe in your Home?: Yes Lack of Transportation: No Lack of Food: Never True Current Housing: I Have Housing Concerned About Future Housing: No Difficulty Paying Gas/Electric Bills: No Difficulty Paying for Meds: YES Currently Unemployed: No Education: Trade/Vocational Certificate Difficulty w/ Childcare or Family Care: No Living arrangements: with family Occupation/Education: occupation 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 EYES: EOMI, conjunctiva normal ENT: Hearing grossly intact LUNGS: Nonlabored breathing. HEART: [Regular rate and rhythm] ABD: [Soft], [nontender to palpation] EXT: Normal range of motion SKIN: [No rashes or lesions.] NEURO: [Alert and oriented x 3. No gross focal sensory or strength deficits.] normal range of motion bilateral lower extremities PSYCH: Normal affect Course Vital Signs Vital signs: Vital Signs Temperature 98.0 F 12/15/23 13:20 Pulse Rate 87 12/15/23 13:
[2023-12-15] MEDS: diazePAM INJ (*CRX) 10 MG/2 ML SYRINGE 2.5 MG IM (13:36)
[2023-12-15] MEDS: KETOROLAC 30 MG/ML VIAL (*BKC) 15 MG IM (13:36)
[2023-12-15] MEDS: LIDOCAINE 5% PATCH 1 PATCH TRANSDERM (13:37)
[2023-12-15 13:43] VITALS: BP 135/78; PULSE 74; RESP 20; TEMP 36.6; O2SAT 100
[2023-12-15 13:45] VITALS: BP 144/86; PULSE 77; RESP 14; TEMP 36.4; O2SAT 100
[2023-12-15 14:15] VITALS: BP 134/92; PULSE 80; RESP 18; TEMP 36.7; O2SAT 100
== END 2023-12-15 14:16 | disposition home or self-care (01) ==
LOC: ANHED 13:53
PROVIDERS: Emergency Provider Emergency Medicine; PCP Internal Medicine
DX: M54.16 Radiculopathy, lumbar region (principal); I10 Essential (primary) hypertension; E78.5 Hyperlipidemia, unspecified; F41.9 Anxiety disorder, unspecified; F32.A Depression, unspecified; Z90.710 Acquired absence of both cervix and uterus; Z90.49 Acquired absence of other specified parts of digestive tract; Z77.22 Contact with and (suspected) exposure to environmental tobacco smoke (acute) (chronic); Z79.82 Long term (current) use of aspirin; Z79.899 Other long term (current) drug therapy
CPT/HCPCS: 96372; 99284; A9270; J1885; J3360

== ENCOUNTER 2024-01-27 12:28 | Outpatient (CLI) | payer MEDICARE, MEDICAID, SELFPAY ==
--- NOTE | ~2024-01-27 | MMUS_ITS ---
EXAMINATION: MM diagnostic jennifer BI w sanchez, US breast LT limited HISTORY: Follow-up left breast mass TECHNIQUE: Additional 3-D tomosynthesis images of the breasts were performed and synthetic 2-D images were generated. CAD analysis was submitted and interpreted. High resolution Limited left breast ultr asound was performed. COMPARISON: Comparison to multiple prior studies sequentially, with oldest reviewed study dated 10/01. BREAST PARENCHYMAL COMPOSITION: Not dense: There are scattered areas of fibroglandular density. FINDINGS: MAMMOGRAPHIC FINDINGS: There are no suspicious masses, calcifications or architectural distortion in either breast to sugges t malignancy. ULTRASOUND: Limited left breast ultrasound: At 12:00, 10 cm from the nipple there is a 3 mm cyst. No suspicious m asses to suggest malignancy. IMPRESSION: 1. No evidence for malignancy in either breast. 2. Routine yearly screening mammogram and regular clinical breast examination are recommended. BI-RADS Category 2: Benign finding(s). Reviewed, dictated and finalized at location B. IMPRESSION: 1. No evidence for malignancy in either breast. 2. Routine yearly screening mammogram and regular clinical breast examination a re recommended. BI-RADS Category 2: Benign finding(s).
== END 2024-01-27 12:29 | disposition home or self-care (01) ==
LOC: ANHIMG 12:31
PROVIDERS: PCP Internal Medicine; Visit Provider Nurse Practitioner Obstetrics & Gynecology
DX: R92.8 Other abnormal and inconclusive findings on diagnostic imaging of breast (principal)
CPT/HCPCS: 76642; 77062; 77066; G0279

== ENCOUNTER 2024-02-16 10:10 | Outpatient (CLI) | payer MEDICARE, MEDICAID, SELFPAY ==
[2024-02-16 11:24] LABS: Alanine Aminotransferase 23 U/L (6-35); Albumin Level 4.7 g/dL (3.5-5.1); Alkaline Phosphatase 43 U/L (38-126); Anion Gap 9 mmol/L (4-12); Aspartate Amino Transferase 25 U/L (14-36); Bilirubin,Total 0.8 mg/dL (0.2-1.3); Blood Urea Nitrogen 16 mg/dL (7-17); Calcium 9.3 mg/dL (8.4-10.2); Carbon Dioxide 26 mmol/L (22-30); Chloride 105 mmol/L (98-107); Cholesterol 195 mg/dL (0-200); Estimated Glomerular Filt Rate > 60; Glucose 81 mg/dL (65-110); HDL Direct 61 mg/dL; Potassium 3.9 mmol/L (3.4-5.0); Sodium 140 mmol/L (137-145); Triglycerides 142 mg/dL (<150)
[2024-02-16 11:35] LABS: LDL Cholesterol Direct 108 mg/dL
[2024-02-16 12:07] LABS: Vitamin D 25 Hydroxy 34.1 ng/mL
== END 2024-02-16 10:11 | disposition home or self-care (01) ==
PROVIDERS: PCP Internal Medicine; Visit Provider Nurse Practitioner
DX: E78.5 Hyperlipidemia, unspecified (principal); E55.9 Vitamin D deficiency, unspecified
CPT/HCPCS: 36415; 80053; 80061; 82306

== ENCOUNTER 2024-10-18 10:20 | Outpatient (CLI) | payer MEDICARE, SELFPAY ==
--- OUTSIDE RECORDS SUMMARY | 2024-10-18 10:30 | XMS_ITS | Clinical Summary ---
Author Organization [facility] Address [address], [address] [address] Phone Care Team Providers Care Yarn Sorter Name Role Phone Ric Gardner Primary Care Provider [phone] Mathesu Ortiz PAC Unavailable Social History Tobacco Use Types Packs/Day Years Used Date Smoking Tobacco: Never Assessed Comments Unknown Sex and Gender Information Value Date Recorded Sex Assigned at Not on file Legal Sex Female 3:17 PM CDT Gender Identity Not on file Sexual Orientation Not on file Plan of Treatment Health Maintenance Due Date Last Done Comments DEXA Bone Density 1960 Hepatitis C Virus (HCV) Screening 1960 TdaP Immunization 1958 Pap Smear 12/20/1979 Cervical Cancer Screening (CCS) 1988 HPV/Cotest 1988 Cologuard 2008 Immunochemical Fecal Occult Blood 2008 Mammogram 2008 Pneumococcal Immunization (50+ years) (1 of 1 - PCV) 2008 Zoster Immunization (1 of 2) 2008 Influenza Immunization (#1) 12/13/202301/12, 02/27/2017, 01/28/2016, Additional history exists SARS-COV-2 Immunization ( season) 2023 07/14/2020, 06/22/2020 Colonoscopy 02/19/2028 02/18/2018 Colorectal Cancer Screening 02/19/2028 Respiratory Syncytial Virus (RSV) Immunization (Adult) (1 - 1-dose 75+ series) 2033 Hepatitis B Immunization Aged Out No longer eligible based on patient's age to complete this topic Meningococcal Immunization (ACWY) Aged Out No longer eligible based on patient's age to complete this topic Pneumococcal Immunization Combined Aged Out No longer eligible based on patient's age to complete this topic Rotavirus Immunization Aged Out No lo nger eligible based on patient's age to complete this topic Procedures Procedure Name Priority Date/Time Associated Diagnosis Comments COLONOSCOPY Routine 02/18/2018 from Last 3 Months or Most Recently Relevant to Health Maintenance Results * COLONOSCOPY (02/18/2018) Dennis Silverman DO PROCEDURE/MINOR SURGICAL ORDERA BLES Final Result from Last 3 Months or Most Recently Relevant to Health Maintenance Insurance [employer]ICAID [employer] Care Teams Yarn Sorter Relationship Specialty Start Date End Date Ric Gardner DO [address] [place] [address] PCP - General Internal Medicine 01/12/18 Matheus Ortiz PAC [address] [place] [address] 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
--- OUTSIDE RECORDS SUMMARY | 2024-10-18 10:30 | XMS_ITS | Encounter Summary ---
Author Organization [facility] Healthcare Address [address] [place] [address] Care Team Providers Care Lead Mechanical Engineer Name Role Phone Ric Gardner MD Primary Care Provider [phone]- [phone] Matheus Ortiz PA Unavailable [phone] Reason for Visit * Reason Onset Date Comments Letter for School/Work 09/15/2023 Encounter Details Date Type Department Care Team (Late st Contact Info) Description 09/15/2023 Telephone [facility] [place] [facility] [address] [facility] Advanced Medicine [address] [place] [address] Sondra Stark MD [address] [facility] 6 [facility] [address] [place] [address] Letter for School/Work Social History Tobacco Use Types Packs/Day Years Used Date Smoking Tobacco: Never Smokeless Tobacco: Never Alcohol Use Standard Drinks/Week Comments Yes 0 (1 standard drink = 0.6 oz pur e alcohol) AUDIT-C Answer Date Recorded Q1: How often do you have a drink containing alcohol? Never 08/11/2023 Q2: How many drinks containi ng alcohol do you have on a typical day when you are drinking? Patient does not drink Q3: How often do you have si x or more drinks on one occasion? Never 08/11/2023 Hunger Vital Sign Answer Date Recorded Within the past 12 months, y ou worried that your food would run out before you got the money to buy more. Never true 11/29/19 23 Within the past 12 months, t he food you bought just didn't last and you didn't have money to get more. 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 Author ACO CC Goal - Level of ADL/IADL assistance will meet patient's needs ACO Care Management Improving( 8:24 AM ENGINEERING OPERATOR) No Yocasta Anderson, RN Note: Problem: Inadequate assistance to manage ADL's/IADL's Interventions: - Assess current level of functioning and needs with patient/family. - Assess appropriateness for Home Health. Contact PCP office to start referral process if skilled need is present. - Encourage independent ADL's as appropriate. Ensure patient has the appropriate tools at home to be as independent as possible. - Refer to SW if appropriate and patient is agreeable. [facility] Chronic Pain Care Plan Chronic Care Management Improving( 1:03 PM CDT) No Bertha Cervantes, RN Note: Problem: Chronic Pain Goals: 1. Minimize further functional decline 2. Maximize quality of life 3. Control pain Strategies: - Activity/exercise program recommendation - Conservative stepwise pain medicine strategy with multi-disciplinary approach - Recommend healthy lifestyle strategies and compensatory methods as needed documented as of this encounter Visit Diagnoses Not on filedocumented in this encounter Care Teams Lead Mechanical Engineer Relationship Specialty Start Date End Date Ric Gardner MD [address] [place] [address] PCP - General 02/10/13 Matheus Ortiz PA [address] [place] [address] Physician Agent Broker Physician Agent Broker 08/18/22 documented as of this encounter
--- OUTSIDE RECORDS SUMMARY | 2024-10-18 10:30 | XMS_ITS | Encounter Summary ---
Author Organization [facility] Healthcare Address [address] [place] [address] Care Team Providers Care Petal Shaper Hand Name Role Phone Ric Gardner MD Primary Care Provider [phone]- [phone] Matheus Ortiz PA Unavailable [phone] Encounter Details Date Type Department Care Team (Late st Contact Info) Description 12/18/2022 Telephone [facility] [place] [facility]1 [facility] Advanced Medicine [address] [place] [address] Sondra Stark MD [address] [facility] [address] [address] Social History Tobacco Use Types Packs/Day Years Used Date Smoking Tobacco: Never Smokeless Tobacco: Never Alcohol Use Standard Drinks/Week Comments Yes 0 (1 standard drink = 0.6 oz pur e alcohol) AUDIT-C Answer Date Recorded Q1: How often do you have a drink containing alc ohol? 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 Author ACO CC Goal - Level of ADL/IADL assistance will meet patient's needs ACO Care Management Improving( 8:24 AM MANUFACTURING SUPPORT ENGINEER) No Yocasta Anderson, RN Note: Problem: Inadequate [...] SW if appropriate and patient is agreeable. documented as of this encounter Visit Diagnoses Not on filedocumented in this encounter Care Teams Petal Shaper Hand Relationship Specialty Start Date End Date Ric Gardner MD [address] [place] [address] PCP - General 02/10/13 Matheus Ortiz PA [address] [place] [address] Physician Beater And Pulper Feeder Physician Beater And Pulper Feeder 08/18/22 documented as of this encounter
--- OUTSIDE RECORDS SUMMARY | 2024-10-18 10:30 | XMS_ITS | Encounter Summary ---
Author Organization [facility] Healthcare Address [address] [place] [address] Care Team Providers Care Charger Name Role Phone Ric Gardner MD Primary Care Provider [phone]- [phone] Matheus Ortiz PA Unavailable [phone] Encounter Details Date Type Department Care Team (Late st Contact Info) Description 07/31/2023 Telephone [facility] [place] for [facility] [address] [facility] Advanced Medicine [address] [place] [address] Sondra Stark MD [address] [facility] [address] [address] Social History Tobacco Use Types Packs/Day Years Used Date Smoking Tobacco: Never Smokeless Tobacco: Never Alcohol Use Standard Drinks/Week Comments Yes 0 (1 standard drink = 0.6 oz pur e alcohol) AUDIT-C Answer Date Recorded Q1: How often do you have a drink containing alcohol? Never 05/25/2023 Q2: How many drinks containi ng alcohol do you have on a typical day when you are drinking? Patient does not drink Q3: How often do you have si x or more drinks on one occasion? 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 Author ACO CC Goal - Level of ADL/IADL assistance will meet patient's needs ACO Care Management Improving( 8:24 AM CHEMICAL DEPENDENCY ATTENDANT) No Yocasta Anderson, RN Note: Problem: Inadequate [...] SW if appropriate and patient is agreeable. [facility] Chronic Pain Care Plan Chronic Care Management Improving( 1:03 PM CDT) No Bertha Cervantes, MORENITA Note: Problem: Chronic Pain Goals: 1. Minimize further functional decline 2. Maximize quality of life 3. Control pain Strategies: - Activity/exercise program recommendation - Conservative stepwise pain medicine strategy with multi-disciplinary approach - Recommend healthy lifestyle strategies and compensatory methods as needed documented as of this encounter Visit Diagnoses Not on filedocumented in this encounter Care Teams Charger Relationship Specialty Start Date End Date Ric Gardner MD [address] [place] [address] PCP - General 02/10/13 Matheus Ortiz PA [address] [place] [address] Physician Salon Shampoo Assistant Physician Salon Shampoo Assistant 08/18/22 documented as of this encounter
--- OUTSIDE RECORDS SUMMARY | 2024-10-18 10:31 | XMS_ITS | Clinical Summary ---
Author Organization [facility] Address [address] [place] [address] Care Team Providers Care Psychiatric Nurse Practitioner Name Role Phone Ric Gardner MD Primary Care Provider [phone]- [phone] Matheus Ortiz PA Unavailable [phone] Allergies Active Allergy Reactions Criticality Noted Date Comments Dye Hives Medium 06/29/2013 Iodine And Iodide Containing Products Hives Medium Iodinated Contrast Media Hives Medium 03/18/2023 Medications aspirin 81 mg enteric coated tablet ASPIRIN 81 MG ORAL TABLET 0 Active ALPRAZolam (XANAX) 1 mg tablet TAKE 1/2 TO 1 (ONE-HALF TO ONE) TABLET BY MOUTH AT BEDTIME Active lisinopriL (PRINIVIL,ZESTR IL) 20 mg tablet Take 1 tablet (20 mg total) by mouth daily 3 Active famotidine (PEPCID) 20 mg tablet Take 1 tablet (20 mg total) by mouth daily Takes as needed 3 Active simvastatin (ZOCOR) 40 mg tablet simvastatin 40 mg tablet 0 Active cholecalciferol 400 unit capsule daily Active ibuprofen (ADVIL,MOTRIN) 400 mg tablet Take 0.5 tablets (200 mg total) by mouth Takes 200-400 mg daily as needed Active traMADoL (ULTRAM) 50 mg tablet Take 1 tablet (50 mg total) by mouth every 6 (six) hours Takes 25 mg as needed Active cyclobenzaprine (FLEXERIL) 5 mg tablet TAKE 2 TABLETS BY MOUTH THREE TIMES DAILY NEEDED FOR MUSCLE SPASM 30 tablet 4 Active acetaminophen (TYLENOL) 500 mg tablet Take 1 tablet (500 mg total) by mouth every 6 (six) hours as needed for pain Active naloxone (NARCAN) 4 mg/actuation spray,non-aeros ol CALL 911. ADMINISTER A SINGLE SPRAY INTRANASALLY INTO ONE NOSTRIL UPON SIGNS OF OPIOID OVERDOSE. MAY REPEAT AFTER 3 MINUTES IF NO RESPONSE. 4 Active Active Problems Problem Noted Date Diagnosed Date Sacroiliitis 02/10/2023 Hip pain 02/10/2023 Chronic right shoulder pain 02/10/2023 Venous insufficiency 04/01/2019 Cramps of lower extremity 10/29/2016 Localized edema 10/29/2016 Essential (primary) hypertension 06/29/2013 Hyperlipidemia 06/29/2013 Surgical History Surgery Date Site/Laterality Comments REDUCTION MAMMAPLASTY CHOLECYSTECTOMY UMBILICAL HERNIA REPAIR N/A CARPAL TUNNEL RELEASE Bilateral Medical History Medical History Date Comments Arthritis Low back pain Family History Medical History Relation Name Comments Cancer Father Other Father Lymphoma, Hodgk in's Disease; Cause of : Lymphoma, Hodgkin's Disease Breast cancer Mother Cancer, breast ; Cause of : Cancer, breast Cancer Mother Cancer Sister Relation Name Status Comments Father (Age 57) Mother (Age 61) Sister Social History Tobacco Use Types Packs/Day Years Used Date Smoking Tobacco: Never Smokeless Tobacco: Never Tobacco Cessation:Counseling Given: Not Answered Alcohol Use Standard Drinks/Week Comments Yes 0 (1 standard drink = 0.6 oz pur e alcohol) AUDIT-C Answer Date Recorded Q1: How often do you have a drink containing alcohol? Never 11/17/2023 Q2: How many drinks containi ng alcohol do you have on a typical day when you are drinking? Patient does not drink Frequency of Binge Drinking Not on file 09/2023 Hunger Vital Sign Answer Date Recorded Within the past 12 months, y ou worried that your food would run out before you got the money to buy more. Never true 11/17/19 24 Within the past 12 months, t he food you bought just didn't last and you didn't have money to get more. 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 Gender Identity Not on file Sexual Orientation Not on file Obstetrics History Last Filed Vital Signs Vital Sign Reading Time Taken Comments Blood Pressure 134/67 11/17/2023 2:27 PM CDT Pulse 62 11/17/2023 2:27 PM CDT Temperature 36.6 C (97.8 F) 11/17/2023 1:00 PM CDT Respiratory Rate 16 11/17/2023 2:27 PM CDT Oxygen Saturation 100% 11/17/2023 2:27 PM CDT Inhaled Oxygen Concentration - - Weight 91 kg (200 lb 9.6 oz) 11/17/2023 1:00 PM CDT Height 157.5 cm (5' 2) 11/17/2023 1:00 PM CDT Body Mass Index 36.69 11/17/2023 1:00 PM CDT Plan of Treatment Health Maintenance Due Date Last Done Comments Breast Cancer Screening-Mammogram 1958 Cervical Cancer Screening 1958 Colon Cancer Screening-Colonoscopy 1958 Depression Screening 1958 Fall Risk Assessment 1958 Hepatitis C Screening 1958 Osteoporosis Screening-Bone Density Scan 1958 Hepatitis B Screening 1976 Pneumococcal vaccine 65+ (1 of 1 - PCV) 2008 Zoster Vaccine (1 of 2) 2008 Covid-19 Vaccine (4 - 2023-2 5 season) 2023 10/04/2021, 07/14/2020, 06/22/2020 Well Visit 65+ 12/20/2023 Influenza Vaccine (#1) 2024 , 02/07/2020, 01/23/2018, Additional history exists DTaP/Tdap/Td Vaccine (2 - Td or Tdap) 06/23/2032 06/23/2022 Goals Goal Patient Goal Type Associated Problems Recent Progress Patient-Stated? Author ACO CC Goal - Level of ADL/IADL assistance will meet patient's needs ACO Care Management Improving( 8:24 AM BRAZING MACHINE TENDER) Yocasta Menjivar, RN Note: Problem: Inadequate assistance to manage [...] SW if appropriate and patient is agreeable. [facility] Chronic Pain Care Plan Chronic Care Management Improving( 1:03 PM CDT) Bretha Stokes RN Note: Problem: Chronic Pain Goals: 1. Minimize further functional decline 2. Maximize quality of life 3. Control pain Strategies: - Activity/exercise program recommendation - Conservative stepwise pain medicine strategy with multi-disciplinary approach - Recommend healthy lifestyle strategies and compensatory methods as needed Medical Devices Implanted Type Area Second Language Tutor Device Identifier Shelf Expiration Date Model / Serial / Lot Mesh N/A: Abdomen Insurance [facility] WORKERS COMPENSATION GENERIC WORKERS COMPENSATION GENERIC COMPENSATION Care Teams Psychiatric Nurse Practitioner Relationship Specialty Start Date End Date Ric Gardner MD [address] [place] [address] PCP - General 02/10/13 Matheus Ortiz PA [address] [facility] [address] [place] [address] Physician Barrel Rifler Broach Physician Barrel Rifler Broach 08/18/22
--- OUTSIDE RECORDS SUMMARY | 2024-10-18 10:31 | XMS_ITS | Encounter Summary ---
Author Organization [facility] Healthcare Address [address] [place] [address] Care Team Providers Care Jack Prizer Name Role Phone Ric Gardner MD Primary Care Provider [phone]- [phone] Matheus Ortiz PA Unavailable [phone] Encounter Details Date Type Department Care Team (Late st Contact Info) Description 03/03/2023 Telephone [facility] [place] for [facility] Advanced Medicine [address] [place] [address] Sondra Stark MD [address] [facility] 6 [facility] [address] [place] [address] Social History Tobacco Use Types Packs/Day Years [...] on file 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 Author ACO CC Goal - Level of ADL/IADL assistance will meet patient's needs ACO Care Management Improving( 8:24 AM PLANT BREEDER SCIENTIST) No Yocasta Anderson, RN Note: Problem: Inadequate [...] SW if appropriate and patient is agreeable. [facility] Chronic Pain Care Plan Chronic Care Management Improving( 1:03 PM CDT) No Bertha Cervantes RN Note: Problem: Chronic Pain Goals: 1. Minimize further functional decline 2. Maximize quality of life 3. Control pain Strategies: - Activity/exercise program recommendation - Conservative stepwise pain medicine strategy with multi-disciplinary approach - Recommend healthy lifestyle strategies and compensatory methods as needed documented as of this encounter Visit Diagnoses Not on filedocumented in this encounter Care Teams Jack Prizer Relationship Specialty Start Date End Date Ric Gardner MD [address] [place] [address] PCP - General 02/10/13 Matheus Ortiz PA [address] [place] [address] Physician Can Reconditioner Physician Can Reconditioner 08/18/22 documented as of this encounter
--- OUTSIDE RECORDS SUMMARY | 2024-10-18 10:31 | XMS_ITS | Encounter Summary ---
Author Organization [facility] Healthcare Address [address] [place] [address] Care Team Providers Care Grease Refining Supervisor Name Role Phone Ric Gardner MD Primary Care Provider [phone]- [phone] Matheus Ortiz PA Unavailable [phone] Encounter Details Date Type Department Care Team (Late st Contact Info) Description 02/17/2023 Telephone [facility] [place] for [facility] Advanced Medicine [address] [place] [address] Sondra Stark MD [address] [facility] [address] [address] Social History Tobacco Use Types Packs/Day Years [...] on file 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 Author ACO CC Goal - Level of ADL/IADL assistance will meet patient's needs ACO Care Management Improving( 8:24 AM WINE FERMENTER) No Yocasta Anderson, RN Note: Problem: Inadequate [...] SW if appropriate and patient is agreeable. [facility] Chronic Pain Care Plan Chronic Care [...] on filedocumented in this encounter Care Teams Grease Refining Supervisor Relationship Specialty Start Date End Date Ric Gardner MD [address] [place] [address] PCP - General 02/10/13 Matheus Ortiz PA [address] [place] [address] Physician Band Builder Physician Band Builder 08/18/22 documented as of this encounter
--- OUTSIDE RECORDS SUMMARY | 2024-10-18 10:31 | XMS_ITS | Referral Summary ---
Author Organization [facility] Address [address] [place] [address] Care Team Providers Care Manager Of Enterprise Name Role Phone Ric Gardner MD Primary Care Provider [phone]- [phone] Matheus Ortiz PA Unavailable [phone] Allergies Active Allergy Reactions Criticality Noted Date [...] REPEAT AFTER 3 MINUTES IF NO RESPONSE. 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 Author ACO CC Goal - Level of ADL/IADL assistance will meet patient's needs ACO Care Management Improving( 8:24 AM SHEARING MACHINE FEEDER) No Yocasta Anderson, RN Note: Problem: Inadequate [...] SW if appropriate and patient is agreeable. [facility] Chronic Pain Care Plan Chronic [...] as needed Medical Devices Implanted Type Area Time Study Technician Device Identifier Shelf Expiration Date Model / Serial / Lot Mesh N/A: Abdomen Insurance [facility] WORKERS COMPENSATION [place] [address] [place] [address] WORKERS COMPENSATION GENERIC COMPENSATION Care Teams Manager Of Enterprise Relationship Specialty Start Date End Date Ric Gardner MD [address] [place] [address] PCP - General 02/10/13 Matheus Ortiz PA [address] [place] [address] Physician Front Of House Manager Physician Front Of House Manager 08/18/22
[2024-10-18 10:47] LABS: Hematocrit 40.8 % (37.0-47.0); Hemoglobin 13.2 g/dL (12.0-15.0); Immature Granulocyte Percent A 0.0 % (0-0.5); Immature Platelet Fraction Pct 9.0 % (0.9-11.2); Lymphocytes Absolute Auto 1.16 K/mm3 (0.9-3.2); Mean Corpuscular HGB Conc 32.4 g/dl (32-36); Mean Corpuscular Hemoglobin 28.3 pg (26-34); Mean Corpuscular Volume 87.6 fl (80-100); Nucleated Red Blood Cells Absolute Auto 0.000 K/mm3 (0.0-0.012); Nucleated Red Blood Cells Perc 0.0 % (0.0-0.2); Platelet Count Result 132 k/mm3 (150-375); Red Blood Count 4.66 M/mm3 (4.2-5.4); White Blood Count 3.1 K/mm3 (4.5-10.0)
[2024-10-18 11:05] LABS: Alanine Aminotransferase 20 U/L (6-35); Albumin Level 4.1 g/dL (3.5-5.1); Alkaline Phosphatase 28 U/L (38-126); Anion Gap 7 mmol/L (4-12); Aspartate Amino Transferase 24 U/L (14-36); Bilirubin,Total 0.5 mg/dL (0.2-1.3); Blood Urea Nitrogen 16 mg/dL (7-17); Calcium 9.4 mg/dL (8.4-10.2); Carbon Dioxide 26 mmol/L (22-30); Chloride 107 mmol/L (98-107); Cholesterol 187 mg/dL (0-200); Estimated Glomerular Filt Rate > 60; Glucose 91 mg/dL (65-110); HDL Direct 50 mg/dL; Potassium 4.2 mmol/L (3.4-5.0); Sodium 140 mmol/L (137-145); Total Protein 6.8 g/dL (6.3-8.2); Triglycerides 135 mg/dL (<150)
== END 2024-10-18 10:21 | disposition home or self-care (01) ==
LOC: ANHLAB 10:24
PROVIDERS: PCP Internal Medicine; Visit Provider Internal Medicine
DX: E55.9 Vitamin D deficiency, unspecified (principal); E78.49 Other hyperlipidemia; I10 Essential (primary) hypertension; E78.5 Hyperlipidemia, unspecified
CPT/HCPCS: 36415; 80053; 80061; 82306; 85025; 85055

== ENCOUNTER 2025-03-21 15:22 | Outpatient (CLI) | payer MEDICARE, SELFPAY ==
--- NOTE | ~2025-03-21 | MM_ITS ---
EXAMINATION: MM screening jennifer BI w sanchez HISTORY: Screening. Surgical biopsy on the left and bilateral reduction mammoplasty. TECHNIQUE: Craniocaudal and mediolateral oblique 3-D tomosynthesis images were obtained and synthetic 2-D images were generated. CAD analysis was submitted and interpreted. COMPARISON: 2023, 2022, and 2020. BREAST PARENCHYMAL COMPOSITION: Not Dense: The breasts are almost entirely fatty FINDINGS: No suspicious masses are seen. There are no suspicious calcifications. Postop changes are seen. No unexplained architectural distortion is seen. There are no skin or nipple abnormalities identified. There is no adenopathy seen on the images submitted. IMPRESSION: No mammographic evidence to suggest malignancy is seen. The patient may return to screening mammography as per ACR guidelines. BI-RADS 2 - Benign. Reviewed, dictated and finalized at location C. R AWAY
--- OUTSIDE RECORDS SUMMARY | 2025-03-21 17:48 | XMS_ITS | Encounter Summary ---
Author Organization [facility] Healthcare Address [address] [place] [address] Care Team Providers Care Manager Intelligence Name Role Phone Ric Gardner MD Primary Care Provider [phone]- [phone] Matheus Ortiz PA Unavailable [phone] Encounter Details Date Type Department Care Team (Late st Contact Info) Description 12/18/2022 Telephone [facility] [place] for [facility] Advanced Medicine [address] [place] [address] Sondra Stark MD [address] [facility] [address] [address] Social History Tobacco Use Types Packs/Day Years [...] on file Legal Sex Female 7:26 PM PATTERN SCRATCHER Gender Identity Not on file Sexual Orientation Not on file documented as of this encounter Plan of Treatment Not on file documented as of this encounter Goals Goal Patient Goal Type Associated Problems Recent Progress Patient-Stated? Author ACO CC Goal - Level of ADL/IADL assistance will meet patient's needs ACO Care Management Improving( 8:24 AM PATTERN SCRATCHER) No Yocasta Anderson, RN Note: Problem: Inadequate [...] on filedocumented in this encounter Care Teams Manager Intelligence Relationship Specialty Start Date End Date Ric Gardner MD [address] [place] [address] PCP - General 02/10/13 Matheus Ortiz PA [address] [place] [address] Physician Custom Frame Assembler Physician Custom Frame Assembler 08/18/22 documented as of this encounter
--- OUTSIDE RECORDS SUMMARY | 2025-03-21 17:48 | XMS_ITS | Encounter Summary ---
Author Organization [facility] Healthcare Address [address] [place] [address] Care Team Providers Care Paralegal Internship Name Role Phone Ric Gardner MD Primary Care Provider [phone]- [phone] Matheus Ortiz PA Unavailable [phone] Encounter Details Date Type Department Care Team (Late st Contact Info) Description 07/31/2023 Telephone [facility] [place] for [facility] [address] [facility] Advanced Medicine [address] [place] [address] Sondra Stark MD [address] [facility] [address] [address] Social History Tobacco Use Types Packs/Day Years [...] on file Legal Sex Female 7:26 PM RECORDING CLERK Gender Identity Not on file Sexual Orientation Not on file documented as of this encounter Plan of Treatment Not on file documented as of this encounter Goals Goal Patient Goal Type Associated Problems Recent Progress Patient-Stated? Author ACO CC Goal - Level of ADL/IADL assistance will meet patient's needs ACO Care Management Improving( 8:24 AM RECORDING CLERK) No Yocasta Anderson, RN Note: Problem: Inadequate [...] SW if appropriate and patient is agreeable. [facility] Chronic Pain Care Plan Chronic Care [...] on filedocumented in this encounter Care Teams Paralegal Internship Relationship Specialty Start Date End Date Ric Gardner MD [address] [place] [address] PCP - General 02/10/13 Matheus Ortiz PA [address] [place] [address] Physician Pipe Liner Physician Pipe Liner 08/18/22 documented as of this encounter
--- OUTSIDE RECORDS SUMMARY | 2025-03-21 17:48 | XMS_ITS | Encounter Summary ---
Author Organization [facility] Healthcare Address [address] [place] [address] Care Team Providers Care Retail Business Manager Name Role Phone Ric Gardner MD Primary Care Provider [phone] Matheus Ortiz PA Unavailable Reason for Visit * Reason Onset Date Comments Letter for School/Work 09/15/2023 Encounter Details Date Type Department Care Team (Late st Contact Info) Description 09/15/2023 Telephone [facility] [place] [facility] [address] [facility] [address] [place] [address] Sondra Stark MD [address] [facility] 6 [facility] [address] [place] [address] Letter for School/Work Social History Tobacco Use [...] on file 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 Author ACO CC Goal - Level of ADL/IADL assistance will meet patient's needs ACO Care Management Improving( 8:24 AM COMPUTING TUTOR) No Yocasta Anderson, RN Note: Problem: Inadequate [...] SW if appropriate and patient is agreeable. [facility] Chronic Pain Care Plan Chronic Care Management [...] on filedocumented in this encounter Care Teams Retail Business Manager Relationship Specialty Start Date End Date Ric Gardner MD [address] [place] [address] PCP - General 02/10/13 Matheus Ortiz PA [address] [place] [address] Physician Inspector Materials And Processes Physician Inspector Materials And Processes 08/18/22 documented as of this encounter
--- OUTSIDE RECORDS SUMMARY | 2025-03-21 17:48 | XMS_ITS | Clinical Summary ---
Author Organization [facility] Address [address], [address] [address] Phone Care Team Providers Care Scrubber Machine Tender Name Role Phone Ric Gardner Primary Care Provider Matheus Ortiz PAC Unavailable Social History Tobacco Use Types Packs/Day Years Used Date Smoking Tobacco: Never Assessed Comments Unknown Sex and Gender Information Value Date Recorded Sex Assigned at Not on file Legal Sex Female 3:17 PM CDT Gender Identity Not on file Sexual Orientation Not on file Plan of Treatment Health Maintenance Due Date Last Done Comments Hepatitis C Virus (HCV) Screening 1960 TdaP Immunization 1960 Cologuard 12/20/2003 Immunochemical Fecal Occult Blood 12/20/2003 Pneumococcal Immunization (50+ years) (1 of 1 - PCV) 2008 Zoster Immunization (1 of 2) 2008 Influenza Immunization (#1) 12/12/202401/12, 02/27/2017, 01/28/2016, Additional history exists SARS-COV-2 Immunization ( season) 2024 07/14/2020, 06/22/2020 Colonoscopy 02/19/2028 02/18/2018 Colorectal Cancer Screening 02/19/2028 Respiratory Syncytial Virus (RSV) Immunization (Adult) (1 - 1-dose 75+ series) 2033 Hepatitis B Immunization Aged Out No longer eligible based on patient's age to complete this topic Human Papillomavirus (HPV) Immunization Aged Out No longer eligible based [...] Recently Relevant to Health Maintenance Results * [facility] COLONOSCOPY (02/18/2018) Dennis Silverman DO PROCEDURE/MINOR SURGICAL ORDERA BLES Final Result from Last 3 Months or Most Recently Relevant to Health Maintenance Insurance MEDICAID [employer] Care Teams Scrubber Machine Tender Relationship Specialty Start Date End Date Ric Gardner DO [address] [place] [address] PCP - General Internal Medicine 01/12/18 Matheus Ortiz PAC [address] [place] [address] Physician Teacher 01/12/18
--- OUTSIDE RECORDS SUMMARY | 2025-03-21 17:49 | XMS_ITS | Clinical Summary ---
Author Organization [facility] Address [address] [place] [address] Care Team Providers Care Disk Grinder Name Role Phone Ric Gardner MD Primary Care Provider [phone] Matheus Ortiz PA Unavailable [phone] Allergies Active Allergy Reactions Criticality Noted Date [...] on file Legal Sex Female 7:26 PM DIRECTOR OF EMERGENCY NURSING Gender Identity Not on file Sexual Orientation [...] Last Done Comments Breast Cancer Screening-Mammogram 1960 Colon Cancer Screening-Colonoscopy 1958 Depression Screening 1958 Fall Risk Assessment 1958 Hepatitis C Screening 1958 Osteoporosis Screening-Bone Density Scan 1958 Hepatitis B Screening 1976 Pneumococcal vaccine 65+ (1 of 1 - PCV) 2008 Zoster Vaccine (1 of 2) 2008 Well Visit 65+ 12/20/2023 Covid-19 Vaccine (4 - 2024-2 6 season) 2024 10/04/2021, 07/14/2020, 06/22/2020 Influenza Vaccine (#1) 2024 , 02/07/2020, 01/23/2018, Additional history exists DTaP/Tdap/Td Vaccine (2 - Td or Tdap) 06/23/2032 06/23/2022 Goals Goal Patient Goal Type Associated Problems Recent Progress Patient-Stated? Author ACO CC Goal - Level of ADL/IADL assistance will meet patient's needs ACO Care Management Improving( 8:24 AM DIRECTOR OF EMERGENCY NURSING) Yocasta Menjivar, RN Note: Problem: Inadequate assistance [...] SW if appropriate and patient is agreeable. [facility] Chronic Pain Care Plan Chronic Care Management Improving( 1:03 PM CDT) Bertha Stokes RN Note: Problem: Chronic Pain Goals: 1. Minimize further functional decline 2. Maximize quality of life 3. Control pain Strategies: - Activity/exercise program recommendation - Conservative stepwise pain medicine strategy with multi-disciplinary approach - Recommend healthy lifestyle strategies and compensatory methods as needed Medical Devices Implanted Type Area Mill Supervisor Device Identifier Shelf Expiration Date Model / Serial / Lot Mesh N/A: Abdomen Insurance [facility] WORKERS COMPENSATION GENERIC WORKERS COMPENSATION GENERIC COMPENSATION Care Teams Disk Grinder Relationship Specialty Start Date End Date Ric Gardner MD [address] [facility] [address] [place] [address] PCP - General 02/10/13 Matheus Ortiz PA [address] [facility] [address] [facility] [address] [place], [place] [id number] Physician Agronomy Manager Physician Agronomy Manager 08/18/22
--- OUTSIDE RECORDS SUMMARY | 2025-03-21 17:49 | XMS_ITS | Encounter Summary ---
Author Organization [facility] Healthcare Address [address] [place] [address] Care Team Providers Care Pharmacy Benefit Manager Name Role Phone Ric Gardner MD Primary Care Provider [phone] Matheus Ortiz PA Unavailable [phone] Encounter Details Date Type Department Care Team (Late st Contact Info) Description 02/17/2023 Telephone [facility] [place] [facility] [address] [place] [address] Sondra Stark MD [address] [facility] 6 [facility] [address] [place] [address] Social History Tobacco Use Types Packs/Day Years [...] on file Legal Sex Female 7:26 PM SITE SUPERINTENDENT Gender Identity Not on file Sexual Orientation Not on file documented as of this encounter Plan of Treatment Not on file documented as of this encounter Goals Goal Patient Goal Type Associated Problems Recent Progress Patient-Stated? Author ACO CC Goal - Level of ADL/IADL assistance will meet patient's needs ACO Care Management Improving( 8:24 AM SITE SUPERINTENDENT) No Yocasta Anderson, RN Note: Problem: Inadequate [...] SW if appropriate and patient is agreeable. [facility] Chronic Pain Care Plan Chronic [...] on filedocumented in this encounter Care Teams Pharmacy Benefit Manager Relationship Specialty Start Date End Date Ric Gardner MD [address] [place] [address] PCP - General 02/10/13 Matheus Ortiz PA [address] [place] [address] [address] Physician [address] Services 08/18/22 documented as of this encounter
--- OUTSIDE RECORDS SUMMARY | 2025-03-21 17:49 | XMS_ITS | Encounter Summary ---
Author Organization [facility] Healthcare Address [address] [place] [address] Care Team Providers Care Concrete Carpenter Name Role Phone Ric Gardner MD Primary Care Provider [phone] Matheus Ortiz PA Unavailable [phone] Encounter Details Date Type Department Care Team (Late st Contact Info) Description 03/03/2023 Telephone [facility] [place] [facility] Advanced Medicine [address] [place] [address] Sondra Stark MD [address] [facility] 6 [facility] [address] [place] [address] Social History Tobacco Use Types Packs/Day Years [...] on file Legal Sex Female 7:26 PM ADMINISTRATION INTERN Gender Identity Not on file Sexual Orientation Not on file documented as of this encounter Plan of Treatment Not on file documented as of this encounter Goals Goal Patient Goal Type Associated Problems Recent Progress Patient-Stated? Author ACO CC Goal - Level of ADL/IADL assistance will meet patient's needs ACO Care Management Improving( 8:24 AM ADMINISTRATION INTERN) No Yocasta Anderson, RN Note: Problem: Inadequate [...] SW if appropriate and patient is agreeable. [facility] Chronic Pain Care Plan Chronic Care [...] on filedocumented in this encounter Care Teams Concrete Carpenter Relationship Specialty Start Date End Date Ric Gardner MD [address] [place] [address] PCP - General 02/10/13 Matheus Ortiz PA [address] [place] [address] Physician Room Service Manager Physician Room Service Manager 08/18/22 documented as of this encounter
== END 2025-03-21 15:23 | disposition home or self-care (01) ==
PROVIDERS: PCP Internal Medicine; Visit Provider Internal Medicine
DX: Z12.31 Encounter for screening mammogram for malignant neoplasm of breast (principal)
CPT/HCPCS: 77063; 77067